=== PATIENT | female | born 1945 | race Caucasian/White ===

== ENCOUNTER → 2016-09-07 05:57 | Outpatient (CLI) | payer MEDICARE, OTHER ==
[2016-07-20 10:32] VITALS: BMI 19.2
[~2016-09-07 05:57] MED LIST: ALDACTONE25 MG PO; BETAPACE 120 M120 MG PO; CARDIZEM LA120 MG PO; CLOBETASOL PROP50 ML TOPICAL; COREG25 MG PO; OMEPRAZOLE40 MG PO; PEPCID20 MG PO; PROTONIX40 MG PO; SYNTHROID25 MCG PO; VALIUM10 MG PO; ZOFRAN ODT4 MG/UDTAB PO
== END | disposition home or self-care (01) ==
LOC: D.US 05:57
DX: E04.1 Nontoxic single thyroid nodule (principal)

== ENCOUNTER → 2016-09-10 09:29 | Outpatient (CLI) | payer MEDICARE, OTHER ==
[2016-07-20 10:32] VITALS: BMI 19.2
== END | disposition home or self-care (01) ==
LOC: D.US 09:29
DX: E04.1 Nontoxic single thyroid nodule (principal)

== ENCOUNTER 2017-01-03 08:41 | Inpatient (IN) | payer MEDICARE, OTHER ==
[~2017-01-03] VITALS: Ht 152.4 cm; Wt 53.5 kg
[2017-01-03 10:37] LABS: APPEARANCE CLEAR (CLEAR); BACTERIA MANY /hpf (NONE SEEN); BILIRUBIN NEGATIVE (NEGATIVE); COLOR YELLOW (YELLOW); EPITHELIAL CELLS 0-5 /hpf (0-5); GLUCOSE NEGATIVE (NEGATIVE); KETONE NEGATIVE (NEGATIVE); LEUKOCYTE ESTERASE 1+ (NEGATIVE); MUCUS <1+ /lpf (NONE SEEN); NITRITE NEGATIVE (NEGATIVE); PROTEIN NEGATIVE (NEGATIVE); UROBILINOGEN NORMAL (NORMAL)
[2017-01-03 11:33] LABS: BASOPHILS 0.6 % (0-2); EOSINOPHILS 2.2 % (0-7); HEMATOCRIT 44.7 % (36.0-48.0); HEMOGLOBIN 15.3 g/dL (12-16); IMMATURE GRANULOCYTES 0.2 % (0-5); LYMPHOCYTES 17.2 % (15-50); MCH 31.7 pg (26.0-34.0); MCHC 34.2 g/dL (31.0-37.0); MCV 92.5 fL (80.0-100.0); MEAN PLATELET VOLUME 9.5 fL (7.4-10.4); MONOCYTES 9.6 % (2-11); NEUTROPHILS 70.2 % (40-80); RBC 4.83 10x6/uL (4.00-5.40); RDW 15.3 % (11.5-14.5); WBC 6.4 10x3/uL (4.8-10.8)
[2017-01-03 11:36] LABS: PLATELET COUNT 201 10x3/uL (130-400)
[2017-01-03 11:37] LABS: APTT 28.3 SECONDS (22.8-39.4); INR 0.97 (0.85-1.17); PROTIME 12.7 SECONDS (11.6-15.0)
[2017-01-03 11:43] LABS: ALBUMIN 4.1 g/dL (3.4-5.0); ALT (SGPT) 37 U/L (10-68); CALC OSMOLALITY 279 mosm/kg (275-300); CALCIUM 10.7 mg/dL (8.5-10.1); CARBON DIOXIDE 24.8 mmol/L (21.0-32.0); CHLORIDE - SERUM 99 mmol/L (98-107); CREATININE - SERUM 0.6 mg/dL (0.6-1.3); GLUCOSE 145 mg/dL (74-106); POTASSIUM - SERUM 4.4 mmol/L (3.5-5.1); SODIUM 138 mmol/L (136-145); UREA NITROGEN 14 mg/dL (7-18); eGFR NON AFRICAN AMERICAN > 90 mL/min (90-120)
[2017-01-03 11:55] LABS: ALKALINE PHOSPHATASE 92 U/L (46-116); BILIRUBIN - TOTAL 0.32 mg/dL (0.2-1.3)
[2017-01-03 13:00] VITALS: BP 159/62
--- NOTE | 2017-01-03 13:50 | NUR ---
RECEIVED TO ROOM FROM ER VIA WC. AT BEDSIDE.
[2017-01-03] MEDS ORDERED: BAYER CHEWABLE81 MG PO (14:19)
[2017-01-03 14:28] VITALS: BP 159/62; BMI 19.0
--- NOTE | 2017-01-03 14:30 | NUR ---
IV TO L AC PATENT. NS INFUSING AT 50 CC/HR VIA PUMP. WEAKNESS NOTED TO ALL EXTREMITIES. REPORTS HAVING LEFT SIDED WEAKNESS FROM PREVIOUS CVA. RIGHT SIDED FACIAL DROOPING NOTED. HAVING DIFFICULTY FINDING CORRECT WORDS. CRISTI MAT APPLIED TO BED. SCD'S IN USE TO BILAT LEGS. PARTY PLAN SALES UNIT ADVISOR SHOWING SR 63 PER TECH.
[2017-01-03 15:44] VITALS: BP 162/69
--- NOTE | 2017-01-03 18:11 | NUR ---
ASSISTED UP TO BEDSIDE COMMODE BY STOCK LAYER.
--- NOTE | 2017-01-03 19:40 | NUR ---
MRI DOWN. NOTIFIED KANCHAN POTTS THAT SERVICE IS HERE AND MRI WILL BE PERFORMED IN AM
[2017-01-03 20:00] VITALS: BP 148/69
[2017-01-04] VITALS: BP 152/71
[2017-01-04 04:00] VITALS: BP 143/58
[2017-01-04 06:01] LABS: BASOPHILS 0.8 % (0-2); EOSINOPHILS 3.5 % (0-7); HEMATOCRIT 41.8 % (36.0-48.0); HEMOGLOBIN 13.9 g/dL (12-16); LYMPHOCYTES 28.1 % (15-50); MCH 31.3 pg (26.0-34.0); MCHC 33.3 g/dL (31.0-37.0); MCV 94.1 fL (80.0-100.0); NEUTROPHILS 51.6 % (40-80); PLATELET COUNT 187 10x3/uL (130-400); RBC 4.44 10x6/uL (4.00-5.40); RDW 15.6 % (11.5-14.5); WBC 4.9 10x3/uL (4.8-10.8)
[2017-01-04 06:31] LABS: CALC OSMOLALITY 275 mosm/kg (275-300); CALCIUM 9.7 mg/dL (8.5-10.1); CARBON DIOXIDE 28.2 mmol/L (21.0-32.0); CHLORIDE - SERUM 101 mmol/L (98-107); CHOL - HDL RATIO 9.4 ratio (2.3-4.1); CHOLESTEROL, TOTAL 311 mg/dL (0-200); CREATININE - SERUM 0.7 mg/dL (0.6-1.3); GLUCOSE 120 mg/dL (74-106); HDL CHOLESTEROL 33 mg/dL (32-96); SODIUM 138 mmol/L (136-145); UREA NITROGEN 11 mg/dL (7-18); eGFR NON AFRICAN AMERICAN 87 mL/min (90-120)
[2017-01-04 06:45] LABS: TRIGLYCERIDE 793 mg/dL (30-200)
--- NOTE | 2017-01-04 07:35 | NUR ---
DR TERRY BY TO SEE PATIENT. OFF FLOOR TO MRI VIA .
--- NOTE | 2017-01-04 08:18 | NUR ---
NO IV ACCESS. MRI BRAIN WITHOUT PERFORMED. WILL OBTAIN MRI BRAIN WITH CONTRAST, IF NEEDED, IF IV ACCESS OBTAINED.
--- NOTE | 2017-01-04 08:50 | NUR ---
RETURNED TO ROOM FROM MRI VIA .
[2017-01-04 09:26] VITALS: BP 110/64
--- NOTE | 2017-01-04 09:30 | NUR ---
ASSESSMENT COMPLETE. NO IV ACCESS AT THIS TIME. CREATIVE ENGAGEMENT DIRECTOR SHOWING SR 69 PER TECH. CRISTI MAT IN USE. SCDS IN USE TO BILAT LEGS. SLIGHT RIGHT FACIAL DROOPING NOTED. SWELLING NOTED TO R EYE. FAMILY AT BEDSIDE.
--- NOTE | 2017-01-04 09:34 | NUR ---
* How many steps to enter\exit or inside your home? 0 0 * PCP Priyanka 0 * Pharmacy [facility] * Preadmission Environment Home with Family 0 * ADLs Independent 0 * Equipment Bedside Commode Rolling Walker Shower Chair 0 * List name and contact numbers for known caregivers / representatives who currently or will assist patient after discharge: Camilo Palomino (spouse) [phone] * Additional services required to return to the preadmission environment? Yes 0 * Can the patient safely return to the preadmission environment? Yes 0 * Has this patient been hospitalized within the prior 30 days at any hospital? No 0 Grand Total: 0 Patient Name: JAMES PALOMINO Admission Status: ER Accout number: [id number] Admission Date: 01-03-2017 : 1945 Admission Diagnosis: Attending: HEMANT Current LOS: 1 Anticipated DC Date: Planned Disposition: Home Primary Insurance: MEDICARE A & B Discharge Planning Comments: Met with spouse (Camilo) [phone] to assess discharge planning needs. Spouse states that they live independently at home without any stairs or steps in the home. Spouse states that she had been using in home PT with [facility], but is currently not at this present time. He states that they have a bed side commode, rolling walker, shower chair. reports that she is having trouble with ambulation. CM will continue to assist and follow as needed with discharge planning needs. PCP: Priyanka Pharmacy: [facility] Spouse : Camilo [phone]) Manager Continuous Improvement: Tanna Ordonez
--- NOTE | 2017-01-04 10:30 | NUR ---
IV SITED TO R HAND WITH 22 GUAGE X 1 ATTEMPT BY FLORES LOOMIS RN. FAMILY AT BEDSIDE. DENIES ANY NEEDS AT PRESENT.
[2017-01-04 12:37] VITALS: BP 161/53
[2017-01-04 12:49] VITALS: Ht 152.4 cm; Wt 53.5 kg
--- NOTE | 2017-01-04 14:00 | NUR ---
VISITING WITH . DENIES ANY NEEDS AT PRESENT.
--- NOTE | 2017-01-04 16:30 | NUR ---
DENIES ANY NEEDS AT PRESENT.
[2017-01-04 16:48] VITALS: BP 141/57
[2017-01-04 20:00] VITALS: BP 166/66
[2017-01-05] VITALS: BP 147/54
--- NOTE | 2017-01-05 02:10 | NUR ---
RESTING WITH EYES CLOSED, NO DISTRESS NOTED, FALL PRECAUTIONS IN PLACE, CL IN REACH
[2017-01-05 04:00] VITALS: BP 150/57
--- NOTE | 2017-01-05 07:35 | NUR ---
ASSESSMENT PER FLOW SHEET.PT WITHOUT DISTRESSS. AT BEDSIDE.CRISTI MAT IN PLACE AND ON.FALL PREVENTION IN PLACE.
[2017-01-05 08:38] VITALS: BP 184/85
[2017-01-05] MEDS ORDERED: ELIQUIS2.5 MG PO (09:56)
[2017-01-05] MEDS ORDERED: MACROBID100 MG PO (09:58)
--- NOTE | 2017-01-05 10:00 | EC ---
PATIENT:JAMES PEACOCK DATE OF SERVICE: 01/04/17 SEX: F MEDICAL RECORD: [id number] DATE OF : [birth year] LOCATION:[facility] AGE OF PATIENT: 71 ADMISSION DATE: 01/04/17 REFERRING PHYSICIAN: INTERPRETING PHYSICIAN: ENEDINA HOGAN MD ECHOCARDIOGRAM REPORT ECHO CHARGES 4 ECHO COMPLETE CLINICAL DIAGNOSIS: AFIB/CVA HX CVA/AFIB ECHOCARDIOGRAPHIC MEASUREMENTS (adult normal given) AC root (d.<3.7cm) 3.0 LV Septum d (<1.2 cm> 1.3 Valve Excursion 1.3 LV Septum (systole) 1.5 Left Atria (s.<4.0cm> 2.6 LVPW d(<1.2cm) 1.3 RV (d.<2.3cm) 2.5 LVPW (sytole) 1.5 LV diastole(<5.6CM) 4.4 MV E-F(>70mm/sec) LV systole 2.9 LVOT Diameter 1.6 MV exc.(>10mm) 1.5 Est.ejection fraction (50-75%) Pericardial Effusion N DOPPLER: LVIT A 63.0 E 110 LA RVSP 18 LVOT 91 AOP1/2T Asc. Ao 155 RVOT 94 RA PA 106 AV Gradient Peak 9.63 AV Mean 5.08 AV Area 1.6 MV Gradient Peak 7.93 MV Mean 2.47 MV Area COMMENTS: Therapeutic Sales Specialist: Jimmy HILLMAN Wire Brusher:1 Dr. Valentin TAPE# PACS DATE OF SERVICE: 01/04/2017 Adequate 2D echo, color flow, spectral Doppler and M-mode. Borderline LVH. LV internal dimension is normal. Wall motion is normal. EF is greater than 55%. Aortic valve is tricuspid. No stenosis by Doppler interrogation. The left atrium is normal. Mitral valve shows no prolapse. Trace to mild MR. Right-sided chamber is grossly normal. Trace TR. TRANSINT:[id number] Voice Confirmation ID: [id number] DOCUMENT ID: [id number] ECHOCARDIOGRAM REPORT [id number] JAMES PEACOCK ENEDINA HOGAN MD at 1000 CC: [id number] DICTATION DATE: 01/04/17 1258 SENIOR IT ARCHITECT: 01/04/17 5543 ADM IN [facility] [address] [id number]
--- NOTE | 2017-01-05 11:05 | NUR ---
IV DCD WITH CATH INTACT.DISCHARGE INSTRUCTIONS WITH PT AND ,STATED UNDERSTANDING.
--- NOTE | 2017-01-05 11:35 | NUR ---
LEFT UNIT VIA WHEELCHAIR FOR TRANSPORT HOME.
== END 2017-01-05 11:35 | disposition home or self-care (01) | DRG 69 ==
LOC: D.ER 08:41 → OBSVTIME 11:35 → D.MS 11:35
PROVIDERS: Emergency Medicine; ADMIT Family Medicine
DX: G45.9 Transient cerebral ischemic attack, unspecified (principal); I69.954 Hemiplegia and hemiparesis following unspecified cerebrovascular disease affecting left non-dominant side; N39.0 Urinary tract infection, site not specified; R47.1 Dysarthria and anarthria; R20.0 Anesthesia of skin; E78.1 Pure hyperglyceridemia; I48.0 Paroxysmal atrial fibrillation; R13.10 Dysphagia, unspecified; I48.2 Chronic atrial fibrillation; K21.9 Gastro-esophageal reflux disease without esophagitis; I10 Essential (primary) hypertension

== ENCOUNTER 2018-04-30 15:40 | Emergency (ER) | payer MEDICARE, OTHER ==
[~2018-04-30] VITALS: Ht 152.4 cm; Wt 51.8 kg
[~2018-04-30 15:40] MED LIST changes: +BAYER CHEWABLE81 MG PO; +ELIQUIS2.5 MG PO; +MACROBID100 MG PO
[2018-04-30 15:58] VITALS: Ht 152.4 cm; Wt 51.8 kg
[2018-04-30 16:11] LABS: BASOPHILS 0.6 % (0-2); EOSINOPHILS 2.7 % (0-7); HEMATOCRIT 32.2 % (36.0-48.0); HEMOGLOBIN 10.4 g/dL (12-16); IMMATURE GRANULOCYTES 0.2 % (0-5); LYMPHOCYTES 12.6 % (15-50); MCH 29.1 pg (26.0-34.0); MCHC 32.3 g/dL (31.0-37.0); MCV 90.2 fL (80.0-100.0); MEAN PLATELET VOLUME 9.1 fL (7.4-10.4); NEUTROPHILS 73.9 % (40-80); RBC 3.57 10x6/uL (4.00-5.40); RDW 15.1 % (11.5-14.5); WBC 8.8 10x3/uL (4.8-10.8)
[2018-04-30 16:16] LABS: APTT 33.7 SECONDS (22.8-39.4); INR 1.24 (0.85-1.17); PROTIME 15.2 SECONDS (11.6-15.0)
[2018-04-30 16:23] LABS: PLATELET COUNT 364 10x3/uL (130-400)
[2018-04-30 16:24] LABS: ALBUMIN 3.8 g/dL (3.4-5.0); ALKALINE PHOSPHATASE 49 U/L (46-116); ALT (SGPT) 22 U/L (10-68); BILIRUBIN - TOTAL 0.28 mg/dL (0.2-1.3); CALC OSMOLALITY 281 mosm/kg (275-300); CALCIUM 10.3 mg/dL (8.5-10.1); CHLORIDE - SERUM 102 mmol/L (98-107); CREATININE - SERUM 0.9 mg/dL (0.6-1.3); GLUCOSE 103 mg/dL (74-106); POTASSIUM - SERUM 3.9 mmol/L (3.5-5.1); PROTEIN - SERUM 8.1 g/dL (6.4-8.2); SODIUM 140 mmol/L (136-145); UREA NITROGEN 20 mg/dL (7-18); eGFR NON AFRICAN AMERICAN 65 mL/min (90-120)
[2018-04-30 16:35] LABS: CKMB 1.3 U/L (0.0-3.6); CREATINE KINASE 61 UL (21-215)
[2018-04-30 16:39] LABS: TROPONIN-I < 0.017 ng/mL (0.000-0.060)
[2018-04-30 18:45] VITALS: BP 140/61
== END 2018-04-30 19:06 | disposition home or self-care (01) ==
LOC: D.ER 15:40
PROVIDERS: Family Medicine
DX: G45.9 Transient cerebral ischemic attack, unspecified (principal); Z86.79 Personal history of other diseases of the circulatory system; Z86.73 Personal history of transient ischemic attack (TIA), and cerebral infarction without residual deficits; R29.810 Facial weakness; I10 Essential (primary) hypertension

== ENCOUNTER → 2019-02-24 12:46 | Outpatient (CLI) | payer MEDICARE, OTHER, MEDICAID ==
[2018-04-30 15:58] VITALS: BMI 22.3
[~2019-02-24 12:46] MED LIST changes: +ALBUTEROL SULF8.5 GM INH; +AUGMENTIN 875-11 TAB PO; +BRILINTA90 MG PO; +FLUTICASONE PRO16 GM NASAL; +ISOSORBIDE MONO30 M1 PO; +MUCINEX DM ER1 EAC1 PO; +MUCINEX600 MG PO; +TESSALON PERLE100 MG PO; +VITAMIN B-122500 MCG PO; +VITAMIN D31000 UNIT PO; +ZPAK PO
== END | disposition home or self-care (01) ==
LOC: D.RAD 12:46
PROVIDERS: ATTEND Specialist
DX: I63.9 Cerebral infarction, unspecified (principal); I69.391 Dysphagia following cerebral infarction

== ENCOUNTER 2019-03-06 12:18 | Emergency (ER) | payer MEDICARE, OTHER, MEDICAID ==
[~2019-03-06] VITALS: Ht 152.4 cm; Wt 50.0 kg
[~2019-03-06 12:18] MED LIST changes: -ALBUTEROL SULF8.5 GM INH; -AUGMENTIN 875-11 TAB PO; -BRILINTA90 MG PO; -FLUTICASONE PRO16 GM NASAL; -ISOSORBIDE MONO30 M1 PO; -MUCINEX DM ER1 EAC1 PO; -MUCINEX600 MG PO; -TESSALON PERLE100 MG PO; -VITAMIN B-122500 MCG PO; -VITAMIN D31000 UNIT PO; -ZPAK PO
[2019-03-06 12:23] VITALS: Ht 152.4 cm; Wt 50.0 kg
[2019-03-06] MEDS ORDERED: ISOSORBIDE MONO30 M1 PO (12:26)
[2019-03-06] MEDS ORDERED: VITAMIN B-122500 MCG PO (12:27)
[2019-03-06] MEDS ORDERED: VITAMIN D31000 UNIT PO (12:28)
[2019-03-06] MEDS ORDERED: ALBUTEROL SULF8.5 GM INH (12:30)
[2019-03-06] MEDS ORDERED: MUCINEX600 MG PO (12:30)
[2019-03-06] MEDS ORDERED: TESSALON PERLE100 MG PO (12:30)
[2019-03-06] MEDS ORDERED: BRILINTA90 MG PO (12:32)
[2019-03-06 13:26] LABS: BASOPHILS 0.8 % (0-2); EOSINOPHILS 4.4 % (0-7); HEMATOCRIT 29.5 % (36.0-48.0); HEMOGLOBIN 9.7 g/dL (12-16); IMMATURE GRANULOCYTES 0.4 % (0-5); LYMPHOCYTES 21.6 % (15-50); MCH 28.2 pg (26.0-34.0); MCHC 32.9 g/dL (31.0-37.0); MCV 85.8 fL (80.0-100.0); MEAN PLATELET VOLUME 8.6 fL (7.4-10.4); MONOCYTES 10.2 % (2-11); NEUTROPHILS 62.6 % (40-80); PLATELET COUNT 306 10x3/uL (130-400); RBC 3.44 10x6/uL (4.00-5.40); RDW 16.1 % (11.5-14.5); WBC 4.8 10x3/uL (4.8-10.8)
[2019-03-06 13:50] LABS: ALBUMIN 2.9 g/dL (3.4-5.0); ALKALINE PHOSPHATASE 138 U/L (46-116); ALT (SGPT) 15 U/L (10-68); BILIRUBIN - TOTAL 0.32 mg/dL (0.2-1.3); CALC OSMOLALITY 268 mosm/kg (275-300); CALCIUM 9.7 mg/dL (8.5-10.1); CARBON DIOXIDE 26.5 mmol/L (21.0-32.0); CHLORIDE - SERUM 97 mmol/L (98-107); CREATININE - SERUM 0.7 mg/dL (0.6-1.3); POTASSIUM - SERUM 3.5 mmol/L (3.5-5.1); PROTEIN - SERUM 6.7 g/dL (6.4-8.2); SODIUM 133 mmol/L (136-145); UREA NITROGEN 5 mg/dL (7-18); eGFR NON AFRICAN AMERICAN 86 mL/min (90-120)
[2019-03-06 13:51] LABS: GLUCOSE 205 mg/dL (74-106)
[2019-03-06] MEDS ORDERED: AUGMENTIN 875-11 TAB PO (13:54)
[2019-03-06] MEDS ORDERED: FLUTICASONE PRO16 GM NASAL (13:54)
[2019-03-06 13:57] LABS: PRO BNP 390 pg/mL (0-450)
[2019-03-06 14:41] VITALS: BP 168/94
== END 2019-03-06 14:42 | disposition home or self-care (01) ==
LOC: D.ER 12:18
PROVIDERS: Family Medicine
DX: J01.90 Acute sinusitis, unspecified (principal); I10 Essential (primary) hypertension

== ENCOUNTER 2019-03-12 13:40 | Emergency (ER) | payer MEDICARE, OTHER, MEDICAID ==
[~2019-03-12] VITALS: Ht 152.4 cm; Wt 56.8 kg
[~2019-03-12 13:40] MED LIST changes: +ALBUTEROL SULF8.5 GM INH; +AUGMENTIN 875-11 TAB PO; +BRILINTA90 MG PO; +FLUTICASONE PRO16 GM NASAL; +ISOSORBIDE MONO30 M1 PO; +MUCINEX600 MG PO; +TESSALON PERLE100 MG PO; +VITAMIN B-122500 MCG PO; +VITAMIN D31000 UNIT PO
[2019-03-12 13:42] VITALS: Ht 152.4 cm; Wt 56.8 kg
[2019-03-12 14:43] LABS: BASOPHILS 0.4 % (0-2); EOSINOPHILS 5.4 % (0-7); HEMATOCRIT 30.8 % (36.0-48.0); HEMOGLOBIN 10.3 g/dL (12-16); IMMATURE GRANULOCYTES 0.3 % (0-5); LYMPHOCYTES 18.5 % (15-50); MCH 28.1 pg (26.0-34.0); MCHC 33.4 g/dL (31.0-37.0); MCV 84.2 fL (80.0-100.0); MEAN PLATELET VOLUME 8.6 fL (7.4-10.4); MONOCYTES 9.5 % (2-11); NEUTROPHILS 65.9 % (40-80); PLATELET COUNT 339 10x3/uL (130-400); RBC 3.66 10x6/uL (4.00-5.40); RDW 16.1 % (11.5-14.5); WBC 6.7 10x3/uL (4.8-10.8)
[2019-03-12 14:58] LABS: APTT 30.5 SECONDS (22.8-39.4); INR 1.23 (0.85-1.17); PROTIME 14.9 SECONDS (11.6-15.0)
[2019-03-12 15:18] LABS: ALBUMIN 3.4 g/dL (3.4-5.0); ALKALINE PHOSPHATASE 128 U/L (46-116); ALT (SGPT) 18 U/L (10-68); BILIRUBIN - TOTAL 0.23 mg/dL (0.2-1.3); CALC OSMOLALITY 278 mosm/kg (275-300); CALCIUM 10.3 mg/dL (8.5-10.1); CARBON DIOXIDE 24.4 mmol/L (21.0-32.0); CHLORIDE - SERUM 100 mmol/L (98-107); CREATININE - SERUM 0.6 mg/dL (0.6-1.3); GLUCOSE 185 mg/dL (74-106); POTASSIUM - SERUM 4.3 mmol/L (3.5-5.1); PROTEIN - SERUM 7.1 g/dL (6.4-8.2); SODIUM 138 mmol/L (136-145); UREA NITROGEN 7 mg/dL (7-18); eGFR NON AFRICAN AMERICAN > 90 mL/min (90-120)
[2019-03-12 15:28] LABS: CKMB 0.9 U/L (0.0-3.6); CREATINE KINASE 38 UL (21-215); PRO BNP 530 pg/mL (0-450)
[2019-03-12 15:41] LABS: TROPONIN-I < 0.017 ng/mL (0.000-0.060)
[2019-03-12] MEDS ORDERED: MUCINEX DM ER1 EAC1 PO (16:39)
[2019-03-12] MEDS ORDERED: ZPAK PO (16:44)
[2019-03-12 17:30] VITALS: BP 204/105
== END 2019-03-12 17:30 | disposition home or self-care (01) ==
LOC: D.ER 13:40
PROVIDERS: Emergency Medicine
DX: R09.89 Other specified symptoms and signs involving the circulatory and respiratory systems (principal); I11.0 Hypertensive heart disease with heart failure; I50.9 Heart failure, unspecified

== ENCOUNTER 2019-05-05 10:00 | Inpatient (IN) | payer MEDICARE, OTHER, MEDICAID ==
[~2019-05-05] VITALS: Ht 152.4 cm; Wt 47.8 kg
[~2019-05-05 10:00] MED LIST changes: +MUCINEX DM ER1 EAC1 PO; +ZPAK PO
[2019-05-05 10:49] LABS: BASOPHILS 0.7 % (0-2); EOSINOPHILS 1.7 % (0-7); HEMOGLOBIN 9.6 g/dL (12-16); IMMATURE GRANULOCYTES 0.2 % (0-5); MCH 29.5 pg (26.0-34.0); MCHC 33.1 g/dL (31.0-37.0); MCV 89.2 fL (80.0-100.0); MEAN PLATELET VOLUME 9.4 fL (7.4-10.4); MONOCYTES 8.7 % (2-11); NEUTROPHILS 76.7 % (40-80); PLATELET COUNT 327 10x3/uL (130-400); RBC 3.25 10x6/uL (4.00-5.40); RDW 16.8 % (11.5-14.5); WBC 4.2 10x3/uL (4.8-10.8)
[2019-05-05 11:11] LABS: ALBUMIN 3.4 g/dL (3.4-5.0); ALKALINE PHOSPHATASE 738 U/L (46-116); ALT (SGPT) 516 U/L (10-68); BILIRUBIN - TOTAL 10.05 mg/dL (0.2-1.3); CALC OSMOLALITY 285 mosm/kg (275-300); CALCIUM 10.1 mg/dL (8.5-10.1); CHLORIDE - SERUM 96 mmol/L (98-107); CREATININE - SERUM 0.6 mg/dL (0.6-1.3); GLUCOSE 395 mg/dL (74-106); POTASSIUM - SERUM 3.6 mmol/L (3.5-5.1); PROTEIN - SERUM 7.4 g/dL (6.4-8.2); SODIUM 135 mmol/L (136-145); UREA NITROGEN 12 mg/dL (7-18); eGFR NON AFRICAN AMERICAN > 90 mL/min (90-120)
[2019-05-05 11:15] LABS: AMYLASE - SERUM 38 U/L (25-115); LIPASE 618 U/L (73-393)
[2019-05-05 11:16] LABS: TROPONIN-I < 0.017 ng/mL (0.000-0.060)
[2019-05-05] MEDS ORDERED: GLIPIZIDE10 MG PO (11:29)
[2019-05-05] MEDS ORDERED: GLUCOPHAGE1000 MG PO (11:29)
[2019-05-05] MEDS ORDERED: COZAAR100 MG PO (11:31)
[2019-05-05] MEDS ORDERED: ACETAMINOPHEN500 M1 PO (11:32)
[2019-05-05 12:11] LABS: APPEARANCE CLEAR (CLEAR); BILIRUBIN NEGATIVE (NEGATIVE); COLOR YELLOW (YELLOW); GLUCOSE 250 mg/dL (NEGATIVE); KETONE NEGATIVE (NEGATIVE); NITRITE NEGATIVE (NEGATIVE); PROTEIN NEGATIVE (NEGATIVE); SPECIFIC GRAVITY 1.005 (1.005-1.020); UROBILINOGEN NORMAL (NORMAL)
--- NOTE | 2019-05-05 14:25 | NUR ---
PATIENT ARRIVED TO UNIT VIA BED AT THIS TIME.
--- NOTE | 2019-05-05 14:26 | MORECARE ---
CASE MANAGEMENT DISCHARGE SUMMARY PATIENT: JAMES PALOMINO UNIT: [id number] ADM DATE: 05/05/19 AGE: 74 : 43 SEX: F ROOM/BED: D.2582 AUTHOR: HAMZAH,DOC PHYSICIAN: REFERRING PHYSICIAN: ISRA PAYNE MD DATE OF SERVICE: 05/05/19 Discharge Plan Patient Name: JAMES PALOMINO Facility: [facility]:[place] : 1945 Planned Disposition: Home Anticipated Discharge Date: 05/07/19 Discharge Date: Expected LOS: 2 Initial Reviewer: [email or web address] Initial Review Date: 05/05/2019 Generated: 05/05/19 3:26 pm DCP- Discharge Planning Updated by [email or web address]: Julieta Atkins on 05/05/19 1:[address] DC PLAN: Return home with . ANTICIPATED DC NEEDS: May want [facility] at discharge. CM met with patient to complete initial dc planning assessment. CM educated patient on the CM role and verbal consent given by patient to complete assessment. CM verified patient's address, phone number, and emergency contact phone numbers. Patient lives at home with her who is her primary cg. He reports he assists her with bathing,dressing, medication mgt, ambulation, and all transportation. At discharge patient will return home with her and they feel this is a safe discharge. Patient's reports the patient is currently getting outpatient PT/ST and he may want to restart [facility] at [facility]. CM had RENE signed by patients for [facility] if order received at [place]. Patients reports he will transport her home at time of discharge. CM will continue to follow and will assist as needed with dc plans/needs. Julieta Atkins RN, [facility] DCPIA - Discharge Planning Initial Assessment Updated by [email or web address]: Julieta Atkins on 05/05/19 2:20 pm * Is the patient Alert and Oriented? Yes * How many steps to enter\exit or inside your home? none * PCP Dr. Rylan Mckenzie * Pharmacy [facility] [place] * Preadmission Environment Home with Family * ADLs Partial Dependent * Partial ADLs (Assistance needed) Ambulation Bathing Dressing Medication Management Transfers * Equipment Bedside Commode Rolling Walker * List name and contact numbers for known caregivers / representatives who currently or will assist patient after discharge: Camilo Palomino - [facility] - [phone] * Verbal permission to speak to the caregivers and representatives has been obtained from the patient. Yes * Community resources currently utilized None * Please name any agencies selected above. Has had [facility] in the Past. * Additional services required to return to the preadmission environment? No * Can the patient safely return to the preadmission environment? Yes * Has this patient been hospitalized within the prior 30 days at any hospital? No Patient Name: JAMES PALOMINO Page 54446 at 1426 All edits/amendments must be made on the electronic document DICTATION DATE: 05/05/191424 CORE CUTTER AND REAMER: ADAL 05/05/191424 RPT#: [id number] DC DATE: STATUS: ADM IN [facility] [address] [place] [address] END OF REPORT
--- NOTE | 2019-05-05 15:13 | MORECARE ---
CASE MANAGEMENT DISCHARGE SUMMARY PATIENT: JAMES PALOMINO UNIT: [id number] ADM DATE: 05/05/19 AGE: 74 : 43 SEX: F ROOM/BED: D.5532 AUTHOR: HAMZAH,DOC PHYSICIAN: REFERRING PHYSICIAN: ISRA PAYNE MD DATE OF SERVICE: 05/05/19 Discharge Plan Patient Name: JAMES PALOMINO Facility: [facility]:[place] : 1945 Planned Disposition: Home Anticipated Discharge Date: 05/07/19 Discharge Date: Expected LOS: 2 Initial Reviewer: [email or web address] Initial Review Date: 05/05/2019 Generated: 05/05/19 4:13 pm DCP- Discharge Planning Updated by [email or web address]: Julieta Atkins on 05/05/19 1:[address] DC PLAN: Return home with . ANTICIPATED DC NEEDS: May want [facility] at discharge. CM met with patient to complete initial dc planning assessment. CM educated patient on the CM role and verbal consent given by patient to complete assessment. CM verified patient's address, phone number, and emergency contact phone numbers. Patient lives at home with her who is her primary cg. He reports he assists her with bathing,dressing, medication mgt, ambulation, and all transportation. At discharge patient will return home with her and they feel this is a safe discharge. Patient's reports the patient is currently getting outpatient PT/ST and he may want to restart [facility] at [place]. CM had RENE signed by patients for [facility] if order received at [place]. Patients reports he will transport her home at time of discharge. CM will continue to follow and will assist as needed with dc plans/needs. Julieta Atkins RN, [facility] DCPIA - Discharge Planning Initial Assessment Updated by [email or web address]: Julieta Atkins on 05/05/19 2:20 pm * Is the patient Alert and Oriented? Yes * How many steps to enter\exit or inside your home? none * PCP Dr. Rylan Mckenzie * Pharmacy [facility] [place] * Preadmission Environment Home with Family * ADLs Partial Dependent * Partial ADLs (Assistance needed) Ambulation Bathing Dressing Medication Management Transfers * Equipment Bedside Commode Rolling Walker * List name and contact numbers for known caregivers / representatives who currently or will assist patient after discharge: Camilo Palomino - [facility] - [phone] * Verbal permission to speak to the caregivers and representatives has been obtained from the patient. Yes * Community resources currently utilized None * Please name any agencies selected above. Has had [facility] in the Past. * Additional services required to return to the preadmission environment? No * Can the patient safely return to the preadmission environment? Yes * Has this patient been hospitalized within the prior 30 days at any hospital? No Last DP export: 05/05/19 1:26 p Patient Name: JAMES PALOMINO Page [phone] at 1513 All edits/amendments must be made on the electronic document DICTATION DATE: 05/05/191512 METAL TUBE CUTTER: ADAL 05/05/191512 RPT#: [id number] DC DATE: STATUS: ADM IN [facility] [address] [place] [address] END OF REPORT
[2019-05-05 15:39] VITALS: BP 110/73; BMI 19.0
[2019-05-05 16:10] VITALS: BP 110/73
--- NOTE | 2019-05-05 16:22 | NUR ---
FSBS 261. NO INSULIN PER SLIDING SCALE PATIENT IS NPO AND HER FSBS DROPPED FROM 395 TO 261 WITH NO INTERVENTION! PATIENT IS ALSO REFUSING THE INSULIN AND WILL WAIT AND HAVE HER FSBS CHECKED AGAIN AT 2100.
--- NOTE | 2019-05-05 17:00 | NUR ---
AT BEDSIDE FOR ROUNDS. NO NEW ORDERS OBTAINED AT THIS TIME. NO DISTRESS.
[2019-05-05 17:27] LABS: CKMB 0.6 U/L (0.0-3.6); CREATINE KINASE 24 UL (21-215)
[2019-05-05 17:28] LABS: TROPONIN-I < 0.017 ng/mL (0.000-0.060)
--- NOTE | 2019-05-05 19:18 | NUR ---
AROUSES WITH VOICE AND DENIES NEEDS PT IS SLOW WITH SPEACH BUT ALERT AND OX4 PT ADMITS SPEACH DIFFICULTIES FOR SOME TIME NOW SKIN IS YELLOW LCTA AND BOWEL SOUNDS X4 BED IS LOW AND LOCKED AND CALL LIGHT IS WITH PT SRX2
[2019-05-05 20:00] VITALS: BP 143/65
[2019-05-06] VITALS: BP 130/53
[2019-05-06 00:28] LABS: CKMB 0.3 U/L (0.0-3.6); CREATINE KINASE 16 UL (21-215); TROPONIN-I < 0.017 ng/mL (0.000-0.060)
[2019-05-06 04:00] VITALS: BP 162/74
[2019-05-06 06:14] LABS: BASOPHILS 0.6 % (0-2); EOSINOPHILS 4.2 % (0-7); HEMATOCRIT 26.6 % (36.0-48.0); HEMOGLOBIN 8.7 g/dL (12-16); IMMATURE GRANULOCYTES 0.3 % (0-5); LYMPHOCYTES 27.8 % (15-50); MCH 29.2 pg (26.0-34.0); MCHC 32.7 g/dL (31.0-37.0); MCV 89.3 fL (80.0-100.0); MEAN PLATELET VOLUME 9.3 fL (7.4-10.4); NEUTROPHILS 57.1 % (40-80); PLATELET COUNT 284 10x3/uL (130-400); RBC 2.98 10x6/uL (4.00-5.40); RDW 17.5 % (11.5-14.5); WBC 3.6 10x3/uL (4.8-10.8)
[2019-05-06 06:32] LABS: APTT 28.1 SECONDS (22.8-39.4); INR 1.26 (0.85-1.17); PROTIME 15.2 SECONDS (11.6-15.0)
[2019-05-06 07:13] LABS: ALBUMIN 2.8 g/dL (3.4-5.0); ALKALINE PHOSPHATASE 635 U/L (46-116); ALT (SGPT) 436 U/L (10-68); BILIRUBIN - TOTAL 9.31 mg/dL (0.2-1.3); CALCIUM 8.6 mg/dL (8.5-10.1); CARBON DIOXIDE 25.6 mmol/L (21.0-32.0); CHLORIDE - SERUM 105 mmol/L (98-107); CKMB 0.4 U/L (0.0-3.6); CREATINE KINASE 14 UL (21-215); MAGNESIUM - SERUM 1.3 mg/dL (1.8-2.4); PHOSPHOROUS 2.7 mg/dL (2.5-4.9); PRO BNP 248 pg/mL (0-450); PROTEIN - SERUM 6.3 g/dL (6.4-8.2); SODIUM 142 mmol/L (136-145); THYROID STIMULATING HORMONE 1.47 uIU/mL (0.36-3.74); UREA NITROGEN 11 mg/dL (7-18)
--- NOTE | 2019-05-06 07:15 | NUR ---
PT RESTING IN BED, SPOUSE AT BEDSIDE. DENIES ANY NEEDS AT THIS TIME, WILL CONT TO FOLLOW POC
[2019-05-06 07:18] LABS: CALC OSMOLALITY 283 mosm/kg (275-300); CREATININE - SERUM 0.4 mg/dL (0.6-1.3); GLUCOSE 133 mg/dL (74-106); TROPONIN-I < 0.017 ng/mL (0.000-0.060); eGFR NON AFRICAN AMERICAN > 90 mL/min (90-120)
[2019-05-06 07:19] LABS: POTASSIUM - SERUM 2.9 mmol/L (3.5-5.1)
--- NOTE | 2019-05-06 07:20 | NUR ---
PT LEFT FLOOR FOR MRI
[2019-05-06 08:11] LABS: HEPATITIS C ANTIBODY <0.1 S/CO RAT (0.0-0.9)
[2019-05-06 08:39] VITALS: BP 155/78
--- NOTE | 2019-05-06 09:50 | NUR ---
PIV TO LEFT WRIST INFILTRATED, PIV REMOVED WITH CATHETER TIP INTACT. ORDER PLACED FOR VASCULAR ACCESS NURSE
--- NOTE | 2019-05-06 10:54 | NUR ---
CONSENTS FOR ERCP SIGNED WITH SECOND NURSE WITNESS. ALL QUESTIONS ANSWERED. DENIES ANY NEEDS AT THIS TIME, WILL CONT TO FOLLOW POC
--- NOTE | 2019-05-06 12:15 | NUR ---
PT RESTING IN BED, FAMILY AT BEDSIDE, DENIES ANY NEEDS AT THIS TIME. WILL CONT TO FOLLOW POC
[2019-05-06 13:16] VITALS: BP 167/84
[2019-05-06 14:10] VITALS: BMI 18.9
--- NOTE | 2019-05-06 14:45 | NUR ---
OR CALLED TO PREOP PT. PT PREOPED ORDERED
--- NOTE | 2019-05-06 15:15 | NUR ---
PT LEFT FLOOR FOR PROCEDURE
[2019-05-06 18:26] VITALS: BP 187/89
--- NOTE | 2019-05-06 18:30 | NUR ---
PT ARRIVED BACK TO FLOOR FROM PROCEDURE. VSS AND WNL. PT ALERT AND ANSWERING QUESTIONS. FAMILY AT BEDSIDE, DENIES ANY NEEDS AT THIS TIME, WILL CONT TO FOLLOW POC
--- NOTE | 2019-05-06 19:25 | NUR ---
REPORT RECEIVED, WILL CONTINUE POC. PATIENT IS A/OX4, UP WITH ASSIST. PATIENT IS STILL A LITTLE DROWSY FROM ANESTHESIA. NO S/S OF DISTRESS OBSERVED, RR EVEN AND UNLABORED ON ROOM AIR. IV TO RT UPPER ARM IS SL, PATENT, DRSG C/D/I. PATIENT DENIES FURTHER NEEDS AT THIS TIME. CL IN REACH, BED LOCKED AND LOWERED. WILL CTM.
[2019-05-06 20:00] VITALS: BP 193/98
[2019-05-07] VITALS: BP 127/70
--- NOTE | 2019-05-07 04:49 | NUR ---
IV INFILTRATED, IV OUT WITH CATH TIP INTACT. WILL ATTEMPT TO RESITE IV.
[2019-05-07 05:49] LABS: BASOPHILS 0.4 % (0-2); EOSINOPHILS 2.4 % (0-7); HEMATOCRIT 27.2 % (36.0-48.0); HEMOGLOBIN 8.9 g/dL (12-16); IMMATURE GRANULOCYTES 0.2 % (0-5); MCH 29.7 pg (26.0-34.0); MCHC 32.7 g/dL (31.0-37.0); MCV 90.7 fL (80.0-100.0); MEAN PLATELET VOLUME 9.7 fL (7.4-10.4); MONOCYTES 9.3 % (2-11); NEUTROPHILS 63.7 % (40-80); PLATELET COUNT 318 10x3/uL (130-400); RDW 18.2 % (11.5-14.5)
[2019-05-07 05:50] LABS: WBC 4.6 10x3/uL (4.8-10.8)
[2019-05-07 06:06] LABS: CALC OSMOLALITY 286 mosm/kg (275-300); CALCIUM 8.6 mg/dL (8.5-10.1); CARBON DIOXIDE 23.2 mmol/L (21.0-32.0); CHLORIDE - SERUM 107 mmol/L (98-107); CREATININE - SERUM 0.6 mg/dL (0.6-1.3); GLUCOSE 138 mg/dL (74-106); MAGNESIUM - SERUM 1.3 mg/dL (1.8-2.4); PHOSPHOROUS 2.7 mg/dL (2.5-4.9); POTASSIUM - SERUM 3.7 mmol/L (3.5-5.1); SODIUM 143 mmol/L (136-145); UREA NITROGEN 12 mg/dL (7-18); eGFR NON AFRICAN AMERICAN > 90 mL/min (90-120)
--- NOTE | 2019-05-07 06:36 | NUR ---
MAG 1.3 THIS AM. MAGOX ADMINISTERED PO. REDRAW ORDERED FOR THIS EVENING.
[2019-05-07 08:00] LABS: ALBUMIN 2.9 g/dL (3.4-5.0); ALKALINE PHOSPHATASE 657 U/L (46-116); ALT (SGPT) 350 U/L (10-68); BILIRUBIN - TOTAL 4.27 mg/dL (0.2-1.3); CALC OSMOLALITY 282 mosm/kg (275-300); CALCIUM 8.6 mg/dL (8.5-10.1); CARBON DIOXIDE 23.8 mmol/L (21.0-32.0); CHLORIDE - SERUM 107 mmol/L (98-107); GLUCOSE 137 mg/dL (74-106); SODIUM 141 mmol/L (136-145); UREA NITROGEN 13 mg/dL (7-18); eGFR NON AFRICAN AMERICAN > 90 mL/min (90-120)
[2019-05-07 08:04] LABS: CREATININE - SERUM 0.6 mg/dL (0.6-1.3)
--- NOTE | 2019-05-07 10:56 | NUR ---
MIDLINE PLACED BY VASCULAR ACCESS NURSE. LEFT AC. IT STARTED BLEEDING. WE HELPD PRESSURE FOR 10 MINUTES. THEN IN ABOUT 8 MINUTES IT KEPT BLEEDING. THEN WE HELD PRESSURE ANOTHER 10 MINUTES. THEN IN 15 MINUTES IT STARTED BLEEDING AGAIN, SO APPLIED CURLEX, GAUZE AND STRETCHY TAPE FOR 30 MINUTES. IT STARTED BLEEDING THOUGH AGAIN. REMOVED THAT DRESSING AND CALLED VASCULAR ACCESS NURSE AGAIN. SHE SAID WRAP IT WITH HAILEE WRAP FOR 30 MIN, AND REASSESS. IT IS WRAPPED WITH HAILEE WRAP NOW. WILL REACESS AT 1130.
--- NOTE | 2019-05-07 11:41 | NUR ---
PATIENT IS RESTING ON HER BACK AT THIS TIME. SHE HAS FAMILY AT BEDSIDE. HER ARM STILL HAS AN HAILEE WRAP IN PLACE SO THAT THERE IS NO BLEEDING. WILL REACCESS AND REDRESS THE ARM .
[2019-05-07 12:10] LABS: CEA 5.3 ng/mL (0.0-4.7)
--- NOTE | 2019-05-07 12:44 | NUR ---
CARA BOONE CAME IN AND PLACED THE SURGISEAL OVER THE SITE AND REDRESSED, THE HAILEE WRAP HAD NOT STOPPED THE BLEEDING AFTER WE HAD IT WRAPPED FOR 1 HOUR. PAOLO USED SURGISEAL, AND PLACED A NEW DRESSING, AND THEN USED SILK TAPE TO CREATE A PRESSURE DRESSING. THE SITE APPEARS TO HAVE STOPPED BLEEDING NOW.
--- NOTE | 2019-05-07 13:16 | NUR ---
CALLED VASCULAR ACCESS NURSE AGAIN. GERONIMO THE SITE IS STILL BLEEDING.
[2019-05-07 13:50] VITALS: BP 148/80
--- NOTE | 2019-05-07 14:23 | NUR ---
PATIENT HAS A SLOW BLEED FROM HER MIDLINE. ICU NURSE CAME OVER AND ACCESSED IT WELL. SHE HAS A SANDBAG OVER THE SITE NOW. IS AWARE. PAOLO MARROQUIN IS AWARE.
--- NOTE | 2019-05-07 14:35 | NUR ---
SANDBAG IS STILL OVER SITE. BLEEDING APPEARS TO BE SLOWING. IT IS STILL BLEEDING. CALLED PAOLO AGAIN, AND SHE SAID SHE IS GOING TO TALK TO DR PAYNE.
[2019-05-07 14:53] LABS: APTT 41.5 SECONDS (22.8-39.4); INR 1.73 (0.85-1.17); PROTIME 19.6 SECONDS (11.6-15.0)
[2019-05-07 17:40] VITALS: BP 142/63
--- NOTE | 2019-05-07 18:28 | NUR ---
PATIENT WILL GO TO CT IN THE AM.THE BLEEDING IN HER MIDLINE APPEARS TO HAVE CLOTTED. SANDBAG IS STILL IN PLACE.
--- NOTE | 2019-05-07 19:09 | NUR ---
AWAKE AND ALERT WITH BY HER SIDE NO CONTINUED BLEEDING NOTED FROM MIDLINE SAND BAG IS IN PLACE PULSE IS PRESENT IN LEFT WRIST BED IS LOW AND LOCKED SR X2 AND PT HAS CALL LIGHT LCTA SKIN WARM AND DRY PT REMAINS JAUNDICE
[2019-05-07 20:00] VITALS: BP 114/52
--- NOTE | 2019-05-07 21:30 | NUR ---
SOME EDEMA NOTED IN LEFT HAND ALSO SOME NEW BLEEDING NOTED PULSE AND COLOR GOOD IN LEFT WRIST LIFTED SANDBAG REMOVED BLOOD STAINED TOWEL REINFORCED DRSG AND REAPLIED SANDBAG
[2019-05-08] VITALS: BP 152/61
--- NOTE | 2019-05-08 02:04 | NUR ---
MIDLINE CONTINUES TO HAVE SMALL AMT OF BLEEDING AT SITE WITH DRSG REMAINING AND SANDBAG IN PLACE PULSE IS INTACT
[2019-05-08 04:30] VITALS: BP 153/65
--- NOTE | 2019-05-08 05:45 | NUR ---
MIDLINE CONTINUES TO BLEED AND I ATTEMPTED TO ADD MORE PRESSURE AT THIS TIME
[2019-05-08 05:53] LABS: CALC OSMOLALITY 285 mosm/kg (275-300); CARBON DIOXIDE 21.3 mmol/L (21.0-32.0); CHLORIDE - SERUM 110 mmol/L (98-107); CREATININE - SERUM 0.5 mg/dL (0.6-1.3); GLUCOSE 134 mg/dL (74-106); PHOSPHOROUS 2.2 mg/dL (2.5-4.9); POTASSIUM - SERUM 3.4 mmol/L (3.5-5.1); SODIUM 143 mmol/L (136-145); UREA NITROGEN 10 mg/dL (7-18); eGFR NON AFRICAN AMERICAN > 90 mL/min (90-120)
[2019-05-08 05:58] LABS: MAGNESIUM - SERUM 1.9 mg/dL (1.8-2.4)
--- NOTE | 2019-05-08 06:08 | NUR ---
BETSEYM 3.4 DID NOT TREAT SINCE PT IS NPO
[2019-05-08 06:17] LABS: BASOPHILS 0.4 % (0-2); EOSINOPHILS 2.2 % (0-7); IMMATURE GRANULOCYTES 0.4 % (0-5); LYMPHOCYTES 21.4 % (15-50); MCH 29.5 pg (26.0-34.0); MCHC 31.9 g/dL (31.0-37.0); MCV 92.5 fL (80.0-100.0); MEAN PLATELET VOLUME 9.2 fL (7.4-10.4); MONOCYTES 7.8 % (2-11); NEUTROPHILS 67.8 % (40-80); PLATELET COUNT 277 10x3/uL (130-400); RDW 18.2 % (11.5-14.5); WBC 4.5 10x3/uL (4.8-10.8)
[2019-05-08 06:26] LABS: RBC 2.27 10x6/uL (4.00-5.40)
[2019-05-08 06:28] LABS: HEMOGLOBIN 6.7 g/dL (12-16)
--- NOTE | 2019-05-08 07:10 | NUR ---
PT RESTING IN BED, SHIFT ASSESSMENT PERFORMED. PT IS STILL BLEEDING OUT OF MIDLINE. APPLIED MORE KERLIX WRAP TO PT ARM. VSS AND WNL. SPOUSE AT BEDSIDE. WILL CONT TO FOLLOW POC
--- NOTE | 2019-05-08 07:25 | NUR ---
CT HERE TO TAKE PT
--- NOTE | 2019-05-08 07:50 | NUR ---
PT RETURNED FROM CT. SAND BAG APPLIED TO MIDLINE DRESSING.
--- NOTE | 2019-05-08 08:30 | NUR ---
BLOOD CHECKED X2 NURSE WITNESS AT BEDSIDE. PRE-TRANSUSION VITALS TAKEN AT 0825. 1U PRBC STARTED AT 0830. SPOUSE AT BEDSIDE. WILL CONT TO FOLLOW POC
--- NOTE | 2019-05-08 08:45 | NUR ---
15 MIN POST TRANSFUSION VITALS OBTAINED AND WNL. WILL CONT TO FOLLOW POC
[2019-05-08 09:39] VITALS: BP 180/90
--- NOTE | 2019-05-08 11:45 | NUR ---
BED BATH AND FULL LINEN CHANGE PROVIDED. 'S DRESSING TO LEFT ARM HAS MINIMAL BLOOD PRESENT AT THIS TIME. SCD'D IN PLACE. NONSKID SOCKS AND HEEL PROTECTORS IN PLACE. FAMILY AT BEDSIDE. WILL CONT TO FOLLOW POC
[2019-05-08 11:49] VITALS: Ht 152.4 cm; Wt 47.8 kg
--- NOTE | 2019-05-08 12:29 | NUR ---
Nutrition Follow-up: Pt did not eat much breakfast this AM. Says that some foods/drinks don't taste right. Has been bleeding from PICC line site. CT of abdomen today. Diet: Clear Liquid Wt: 97# Last BM: 05/04 per chart Labs noted: Glu 134, K+ 3.4, PO4 2.2, Ca 8.0 Meds reviewed When medically feasible, rec ADAT to cardiac carb consistent. Will monitor diet advancement and PO intake/tolerance and wt trends. RD following.
--- NOTE | 2019-05-08 13:01 | MORECARE ---
CASE MANAGEMENT DISCHARGE SUMMARY PATIENT: JAMES PALOMINO UNIT: [id number] ADM DATE: 05/05/19 AGE: 74 : 43 SEX: F ROOM/BED: D.4342 AUTHOR: RAF GOODSON PHYSICIAN: REFERRING PHYSICIAN: ISRA PAYNE MD DATE OF SERVICE: 05/08/19 Discharge Plan Patient Name: JAMES PALOMINO Facility: [facility]:[place] : 1945 Planned Disposition: Half-Way Facility Anticipated Discharge Date: 05/11/19 Discharge Date: Expected LOS: 6 Initial Reviewer: [email or web address] Initial Review Date: 05/05/2019 Generated: 05/08/19 2:01 pm Comments DCP- Discharge Planning Updated by [email or web address]: Noel Yap on 05/08/19 11:[address] Patient Name: JAMES PALOMINO Admission Status: ER Accout number: [id number] Admission Date: 05-05-2019 : 1945 Admission Diagnosis: Attending: ISRA PAYNE Current LOS: 3 Anticipated DC Date: 05-11-2019 Planned Disposition: Half-Way Facility Primary Insurance: MEDICARE A & B PLANNED EXTERNAL PROVIDER: [facility] Discharge Planning Comments: CM MET WITH PT AND SPOUSE IN ROOM TO DISCUSS DISCHARGE NEEDS AND PLANNING. PT REPORTS PERMISSION TO SPEAK WITH HER SPOUSE REGARDING CARE AND DISCHARGE PLANNING. CM DISCUSSED REHAB SERVICES. PT WANTS TO GO TO [facility] AT DISCHARGE, HER SPOUSE WAS THERE RECENTLY AND THEY PREFER THE FACILITY. CHOICE SIGNED. CM WILL SEND REFERRAL TO [facility] SOON POSSIBLE FOR REHAB SERVICES AT HOSPITAL DISCHARGE. Wax Engraver: Noel Yap DCP- Discharge Planning Updated by [email or web address]: Julieta Atkins on 05/05/19 1:[address] DC PLAN: Return home with . ANTICIPATED DC NEEDS: May want [facility] at discharge. CM met with patient to complete initial dc planning assessment. CM educated patient on the CM role and verbal consent given by patient to complete assessment. CM verified patient's address, phone number, and emergency contact phone numbers. Patient lives at home with her who is her primary cg. He reports he assists her with bathing,dressing, medication mgt, ambulation, and all transportation. At discharge patient will return home with her and they feel this is a safe discharge. Patient's reports the patient is currently getting outpatient PT/ST and he may want to restart [facility] at [facility]. CM had RENE signed by patients for [facility] if order received at [facility]. Patients reports he will transport her home at time of discharge. CM will continue to follow and will assist as needed with dc plans/needs. Julieta Atkins RN, [facility] DCPIA - Discharge Planning Initial Assessment Updated by [email or web address]: Julieta Atkins on 05/05/19 2:20 pm * Is the patient Alert and Oriented? Yes * How many steps to enter\exit or inside your home? none * PCP Dr. Rylan Mckenzie * Pharmacy [facility] the [facility] * Preadmission Environment Home with Family * ADLs Partial Dependent * Partial ADLs (Assistance needed) Ambulation Bathing Dressing Medication Management Transfers * Equipment Bedside Commode Rolling Walker * List name and contact numbers for known caregivers / representatives who currently or will assist patient after discharge: Camilo Palomino - - [phone] * Verbal permission to speak to the caregivers and representatives has been obtained from the patient. Yes * Community resources currently utilized None * Please name any agencies selected above. Has had [facility] in the Past. * Additional services required to return to the preadmission environment? No * Can the patient safely return to the preadmission environment? Yes * Has this patient been hospitalized within the prior 30 days at any hospital? No External Providers External Provider: [facility] Next Contact Date: 05/08/2019 Service Request Date: Service Type: Resolution: Reviewer: Comments: Coverage Notice Reviewer: [email or web address] Dayne Yap Notice Issued Date-Time: 05/08/2019 12:15 Notice Type: Patient Choice Letter Notice Delivered To: Family Member Relationship to Patient: Spouse Cashier General Name: CAMILO PALOMINO Delivery Method: HAND - Hand Delivered Sadaf Days: Prior Verbal Notification: Recipient Understood Notice: Yes Recipient Signature: Yes Med Rec Note Co-signed by Attending: Coverage Notice Comment: [facility] DP export: 05/05/19 2:13 p Patient Name: JAMES PALOMINO Page 54046 at 1301 All edits/amendments must be made on the electronic document DICTATION DATE: 05/08/19 130 STEREOPLOTTER OPERATOR: ADAL 05/08/19 130 RPT#: [id number] DC DATE: STATUS: ADM IN [facility] [address] [place] [address] END OF REPORT
[2019-05-08 13:31] VITALS: BP 175/77
--- NOTE | 2019-05-08 13:35 | NUR ---
HERE AND PLACED 2 STICHES TO MIDLINE AT BEDSIDE. PT TOLERATED WELL. NO BLEEDING NOTED AT THIS TIME FROM MIDLINE. WILL CONT TO FOLLOW POC
--- NOTE | 2019-05-08 13:40 | NUR ---
PRE TRANSFUSION VITALS TAKEN AT 1335. 1U PRBC VERIFIED WITH SECOND NURSE WITNESS AND STARTED AT 1340. WILL CONT TO FOLLOW POC
--- NOTE | 2019-05-08 13:55 | NUR ---
15 MINUTE POST TRANSFUSION VITALS TAKEN AND WNL. WILL CONT TO FOLLOW POC
--- NOTE | 2019-05-08 16:53 | MORECARE ---
CASE MANAGEMENT DISCHARGE SUMMARY PATIENT: JAMES PALOMINO UNIT: [id number] ADM DATE: 05/05/19 AGE: 74 : 43 SEX: F ROOM/BED: D.[facility] AUTHOR: RAF GOODSON PHYSICIAN: REFERRING PHYSICIAN: ISRA PAYNE MD DATE OF SERVICE: 05/08/19 Discharge Plan Patient Name: JAMES PALOMINO Facility: [facility]:[place] : 1945 Planned Disposition: Jail Facility Anticipated Discharge Date: 05/11/19 Discharge Date: Expected LOS: 6 Initial Reviewer: [id number] Initial Review Date: 05/05/2019 Generated: 05/08/19 5:53 pm Comments DCP- Discharge Planning Updated by [email or web address]: Noel Yap on 05/08/19 3:[address] Patient Name: JAMES PALOMINO Encounter No: [id number] : 1945 Primary Insurance: MEDICARE A & B Anticipated DC Date: 05-11-2019 Planned Disposition: Jail Facility External Planned Provider: [facility], MEDICARE REHAB BED DCP follow-up note: CM CALLED AND LEFT MESSAGE FOR [facility], , NOTIFYING OF REHAB REFERRAL. CM FAXED REFERRAL FOR REHAB TO [facility] AT [phone]. CM WAITING ADMISSION DETERMINATION FROM [facility]. MILENA Thomas DCP- Discharge Planning Updated by [id number]: Noel Yap on 05/08/19 11:[address] Patient Name: JAMES PALOMINO Admission Status: ER Accout number: [id number] Admission Date: 05-05-2019 : 1945 Admission Diagnosis: Attending: ISRA PAYNE Current LOS: 3 Anticipated DC Date: 05-11-2019 Planned Disposition: Jail Facility Primary Insurance: MEDICARE A & B PLANNED EXTERNAL PROVIDER: [facility] Discharge Planning Comments: CM MET WITH PT AND SPOUSE IN ROOM TO DISCUSS DISCHARGE NEEDS AND PLANNING. PT REPORTS PERMISSION TO SPEAK WITH HER SPOUSE REGARDING CARE AND DISCHARGE PLANNING. CM DISCUSSED REHAB SERVICES. PT WANTS TO GO TO [facility] AT [facility]CHARGE, HER SPOUSE WAS THERE RECENTLY AND THEY PREFER THE FACILITY. CHOICE SIGNED. CM WILL SEND REFERRAL TO [facility] SOON POSSIBLE FOR REHAB SERVICES AT HOSPITAL DISCHARGE. Resource Recovery Specialist: Noel Yap DCP- Discharge Planning Updated by [email or web address]: Julieta Atkins on 05/05/19 1:[address] DC PLAN: Return home with . ANTICIPATED DC NEEDS: May want [facility] at discharge. CM met with patient to complete initial dc planning assessment. CM educated patient on the CM role and verbal consent given by patient to complete assessment. CM verified patient's address, phone number, and emergency contact phone numbers. Patient lives at home with her who is her primary cg. He reports he assists her with bathing,dressing, medication mgt, ambulation, and all transportation. At discharge patient will return home with her and they feel this is a safe discharge. Patient's reports the patient is currently getting outpatient PT/ST and he may want to restart [facility] [place]. CM had RENE signed by patients for [facility] if order received at [place]. Patients reports he will transport her home at time of discharge. CM will continue to follow and will assist as needed with dc plans/needs. Julieta Atkins RN, [facility] DCPIA - Discharge Planning Initial Assessment Updated by [email or web address]: Julieta Atkins on 05/05/19 2:20 pm * Is the patient Alert and Oriented? Yes * How many steps to enter\exit or inside your home? none * PCP Dr. Rylan Mckenzie * Pharmacy [facility] the [facility] * Preadmission Environment Home with Family * ADLs Partial Dependent * Partial ADLs (Assistance needed) Ambulation Bathing Dressing Medication Management Transfers * Equipment Bedside Commode Rolling Walker * List name and contact numbers for known caregivers / representatives who currently or will assist patient after discharge: Camilo Palomino - - [phone] * Verbal permission to speak to the caregivers and representatives has been obtained from the patient. Yes * Community resources currently utilized None * Please name any agencies selected above. Has had [facility] in the Past. * Additional services required to return to the preadmission environment? No * Can the patient safely return to the preadmission environment? Yes * Has this patient been hospitalized within the prior 30 days at any hospital? No Coverage Notice Reviewer: [id number] - Noel Yap Notice Issued Date-Time: 05/08/2019 12:15 Notice Type: Patient Choice Letter Notice Delivered To: Family Member Relationship to Patient: Spouse Metal Plater Name: CAMILO PALOMINO Delivery Method: HAND - Hand Delivered Sadaf Days: Prior Verbal Notification: Recipient Understood Notice: Yes Recipient Signature: Yes Med Rec Note Co-signed by Attending: Coverage Notice [facility] Last DP export: 05/08/19 12:01 Patient Name: JAMES PALOMINO Page 37002 at 1653 All edits/amendments must be made on the electronic document DICTATION DATE: 05/08/191652 CARRIER OPERATOR: ADAL 05/08/191652 RPT#: [id number] DC DATE: STATUS: ADM IN [facility] [address] [place] [address] END OF REPORT
[2019-05-08 17:27] VITALS: BP 182/80
--- NOTE | 2019-05-08 19:26 | NUR ---
RECIEVED BEDSIDE REPORT. UP IN BED WITH EYES OPEN AND SPOUSE AT BEDSIDE. ALERT AND ORIENTED X4. 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 MIDLINE IV TO LEFT UPPER ARM WITH NS @ [address] LARGE BRUISES TO BBILATERAL ARMS AND PETECHI TO ARMS TRUNK AND THIGHS. DENIES ANY NEEDS AT THIS TIME. WILL CONT. POC.
[2019-05-08 20:00] VITALS: BP 196/83
[2019-05-09 04:00] VITALS: BP 187/81
[2019-05-09 04:34] LABS: BASOPHILS 0.8 % (0-2); EOSINOPHILS 4.9 % (0-7); HEMATOCRIT 31.5 % (36.0-48.0); HEMOGLOBIN 10.4 g/dL (12-16); IMMATURE GRANULOCYTES 0.4 % (0-5); LYMPHOCYTES 18.8 % (15-50); MCH 29.7 pg (26.0-34.0); MEAN PLATELET VOLUME 9.3 fL (7.4-10.4); MONOCYTES 14.7 % (2-11); NEUTROPHILS 60.4 % (40-80); PLATELET COUNT 228 10x3/uL (130-400); RDW 17.6 % (11.5-14.5); WBC 5.1 10x3/uL (4.8-10.8)
[2019-05-09 04:51] LABS: ALBUMIN 2.6 g/dL (3.4-5.0); ALKALINE PHOSPHATASE 449 U/L (46-116); BILIRUBIN - TOTAL 2.33 mg/dL (0.2-1.3); CALCIUM 8.3 mg/dL (8.5-10.1); CARBON DIOXIDE 21.6 mmol/L (21.0-32.0); CHLORIDE - SERUM 108 mmol/L (98-107); CREATININE - SERUM 0.5 mg/dL (0.6-1.3); GLUCOSE 144 mg/dL (74-106); PHOSPHOROUS 2.1 mg/dL (2.5-4.9); POTASSIUM - SERUM 3.6 mmol/L (3.5-5.1); PROTEIN - SERUM 5.8 g/dL (6.4-8.2); SODIUM 141 mmol/L (136-145); eGFR NON AFRICAN AMERICAN > 90 mL/min (90-120)
[2019-05-09 05:04] LABS: ALT (SGPT) 183 U/L (10-68); CALC OSMOLALITY 281 mosm/kg (275-300); MAGNESIUM - SERUM 1.3 mg/dL (1.8-2.4); UREA NITROGEN 7 mg/dL (7-18)
--- NOTE | 2019-05-09 07:00 | NUR ---
RECEIVED REPORT. ASSUMED CARE OF PATIENT. CALL LIGHT WITHIN REACH. PATIENT RESTING IN BED WITH EYES OPEN. IV FLUIDS INFUSING ORDERED AT THIS TIME. PATIENT AT BEDSIDE. PATIENT COMPLAINS OF LOTS OF GAS AND THAT SHE TAKES MIRALAX AT HOME AND HAS NOT HAD ANY HERE NOR HAS SHE HAD A BOWEL MOVEMENT IN 3 DAYS. WILL REQUEST MIRALAX FROM PRIMARY TODAY.
--- NOTE | 2019-05-09 07:30 | NUR ---
ASSISTED PATIENT ONTO THE BEDPAN AT THIS TIME. NO DISTRESS.
--- NOTE | 2019-05-09 08:44 | NUR ---
OOB TO CHAIR AT BEDSIDE. STATES SHE FEELS BETTER TODAY AND SMILING.
[2019-05-09 09:22] VITALS: BP 188/85
--- NOTE | 2019-05-09 11:22 | NUR ---
FSBS 250. 4 UNITS HUMULIN ADMINISTERED PER SLIDING SCALE.
[2019-05-09 14:35] VITALS: BP 187/78
--- NOTE | 2019-05-09 16:25 | NUR ---
FSBS 111. NO INSULIN COVERAGE PER SLIDING SCALE.
[2019-05-09 18:19] VITALS: BP 209/88
--- NOTE | 2019-05-09 19:33 | NUR ---
RECIEVED BEDSIDE SHIFT REPORT. ALERT AND ORIENTED . UP WITH ASSIST. SPOUSE AT BEDSIDE. BRUISING TO CARLOTA ARMS. MIDLINE IV TO LEFT UPPER ARM WITH NS INFUSING AT 125/HR. DENIES ANY PAIN OR NEEDS AT THIS TIME. WILL CONT. POC..
[2019-05-09 20:00] VITALS: BP 207/100
[2019-05-10 00:30] VITALS: BP 207/100
--- NOTE | 2019-05-10 00:31 | NUR ---
B/P REPORTED 207. RETAKEN AND . CALLED CARA BERMUDEZ WITH NEW ORDERS FOR HYDRALAZINE 10 MG IV Q6 HRS PRN FOR SYSTOLIC GREATER THAN 170. PT REPORTS ALLERGIC REACTION TO BE NAUSEA. ZOFRAN GIVEN PRIOR TO ADMISTERING HYDRALAIZINE. B/P AT THIS TIME 169/84 HR 84 SR. WILL CONT TO OBSERVE. DENIES ANY NAUSEA.
--- NOTE | 2019-05-10 00:33 | NUR ---
SPOKE WITH SPOUSE ABOUT ALLERGY TO HYDRALAZINE. BROUGHT THIS NURSE A PIECE OF PAPER WITH MEDICATIONS AND REACTIONS. REACTION IS NAUSEA. CALLED CARA BERMUDEZ BACK AND EXPLAINED ALLERGY. CARA BERMUDEZ SAID GO AHEAD AND GIVE IT . BUT, GIVE HER ZOFRAN FIRST FOR THE NAUSES.
--- NOTE | 2019-05-10 01:16 | NUR ---
B/P 157/79 AT THIS TIME. DISCONNECTED B/P CUFF. WILL CONT TO OBSERVE.
[2019-05-10 03:16] LABS: BASOPHILS 0.8 % (0-2); EOSINOPHILS 2.4 % (0-7); HEMATOCRIT 31.6 % (36.0-48.0); HEMOGLOBIN 10.5 g/dL (12-16); IMMATURE GRANULOCYTES 0.6 % (0-5); LYMPHOCYTES 12.4 % (15-50); MCH 29.9 pg (26.0-34.0); MCHC 33.2 g/dL (31.0-37.0); MEAN PLATELET VOLUME 9.1 fL (7.4-10.4); NEUTROPHILS 70.8 % (40-80); PLATELET COUNT 244 10x3/uL (130-400); RBC 3.51 10x6/uL (4.00-5.40); RDW 17.7 % (11.5-14.5); WBC 4.9 10x3/uL (4.8-10.8)
[2019-05-10 03:22] LABS: ALBUMIN 2.8 g/dL (3.4-5.0); ALKALINE PHOSPHATASE 551 U/L (46-116); ALT (SGPT) 166 U/L (10-68); BILIRUBIN - TOTAL 2.63 mg/dL (0.2-1.3); CALCIUM 8.5 mg/dL (8.5-10.1); CARBON DIOXIDE 22.8 mmol/L (21.0-32.0); CHLORIDE - SERUM 106 mmol/L (98-107); CREATININE - SERUM 0.5 mg/dL (0.6-1.3); GLUCOSE 179 mg/dL (74-106); MAGNESIUM - SERUM 1.6 mg/dL (1.8-2.4); PHOSPHOROUS 2.2 mg/dL (2.5-4.9); PROTEIN - SERUM 6.3 g/dL (6.4-8.2); SODIUM 141 mmol/L (136-145); eGFR NON AFRICAN AMERICAN > 90 mL/min (90-120)
[2019-05-10 03:24] LABS: CALC OSMOLALITY 281 mosm/kg (275-300); UREA NITROGEN 5 mg/dL (7-18)
[2019-05-10 04:00] VITALS: BP 147/66
--- NOTE | 2019-05-10 08:55 | NUR ---
PER 'S NOTES ON 05/07, MAY INCREASE DIET TOLERATED. PATIENT DIET INCREASED TO FULL LIQUID THIS AM. PATIENT IS TOLERATING CLEAR LIQUIDS WELL AND ASKING FOR DIFFERENT DIET, THE NEXT STEP UP. PATIENT IS COMPLAINING OF LEFT UPPER ABD PAIN AT SITE OF PANCREAS, LIPASE VERY ELEVATED. WILL MONITOR PATIENT AND SEE HOW WELL SHE TOLERATES FULL LIQUID AT LUNCH OR IF SHE COMPLAINS OF AN INCREASE IN ABD PAIN.
[2019-05-10 09:00] VITALS: BP 190/99
--- NOTE | 2019-05-10 09:40 | NUR ---
PATIENT OOB WITH PT AMBULATING.
--- NOTE | 2019-05-10 11:48 | NUR ---
FSBS 241. 4 UNITS HUMULIN ADMINISTERED PER SLIDING SCALE. NO DISTRESS.
--- NOTE | 2019-05-10 11:49 | NUR ---
PATIENT IS CONSUMING PO INTAKE WELL. NO DISTRESS. IV FLUIDS REMAINS AT 75ML/HR AT THIS TIME.
--- NOTE | 2019-05-10 12:16 | NUR ---
BP NOW 171/86 AFTER ADMINISTERING IV APRESOLINE.
[2019-05-10 13:58] VITALS: BP 185/90
--- NOTE | 2019-05-10 14:08 | NUR ---
AT BEDSIDE FOR ROUNDS. INFORMED HIM THAT WE ARE NOT ABLE TO CONTROL PATIENT BP UNLESS WE USE IV APRESOLINE. NEW ORDER OBTAINED FOR NORVASC. VERIFIED NORVASC ALLERGY IS ONLY A MILD REACTION OF NAUSEA. ALSO WONDERED IF THE ELEVATED LIPASE IS A RESULT OF THE ERCP AND WAS TOLD YES. PATIENT RESTING WITH EYES CLOSED AT THIS TIME. NO DISTRESS.
--- NOTE | 2019-05-10 16:10 | NUR ---
rehab prescreen: this pt will make a good canidiate for IRF. we can admit tomorrow as long as patient and her labs are stable in the morning. pt has medicare insurance so as soon as get discharge and approval from can admit. thank you for this eval. ciara pena lpn clinicial liasion
--- NOTE | 2019-05-10 17:15 | NUR ---
FSBS 204. 4 UNITS HUMULIN ADMINISTERED PER SLIDING SCALE. NO DISTRESS.
[2019-05-10 17:54] VITALS: BP 169/87
--- NOTE | 2019-05-10 19:27 | NUR ---
RECIEVED BEDSIDE SHIFT REPORT. ALERT AND ORIENTED X4. MIDLINE TO LEFT UPPER ARM WITH NS INFUSING AT 50CC/HR. TELEMETRY IN PLACE. DENIES ANY NEED AT THIS TIME. WILL CONT. POC.
[2019-05-10 20:00] VITALS: BP 172/81
[2019-05-11] VITALS: BP 142/79
[2019-05-11 04:00] VITALS: BP 149/69
--- NOTE | 2019-05-11 07:12 | NUR ---
PT RESTING PEACEFULLY WHEN I ENTERED. AT BEDSIDE ALSO RESTING. BREATHS EVEN, REGULAR AND UNLABORED. NO SIGNS/SYMPTOMS OF ACUTE DISTRESS NTOED AT THIS TIME. DID NOT FURTHER DISTURB. CL IN REACH, SRX2,
[2019-05-11 08:01] LABS: BASOPHILS 0.4 % (0-2); EOSINOPHILS 1.9 % (0-7); HEMATOCRIT 33.4 % (36.0-48.0); HEMOGLOBIN 10.9 g/dL (12-16); IMMATURE GRANULOCYTES 0.2 % (0-5); LYMPHOCYTES 18.1 % (15-50); MCH 30.2 pg (26.0-34.0); MCHC 32.6 g/dL (31.0-37.0); MEAN PLATELET VOLUME 9.2 fL (7.4-10.4); MONOCYTES 11.4 % (2-11); PLATELET COUNT 282 10x3/uL (130-400); RBC 3.61 10x6/uL (4.00-5.40); RDW 17.6 % (11.5-14.5); WBC 4.8 10x3/uL (4.8-10.8)
[2019-05-11 08:08] LABS: MCV 92.5 fL (80.0-100.0)
[2019-05-11 08:16] LABS: ALBUMIN 2.8 g/dL (3.4-5.0); ALKALINE PHOSPHATASE 491 U/L (46-116); ALT (SGPT) 133 U/L (10-68); BILIRUBIN - TOTAL 2.54 mg/dL (0.2-1.3); CALC OSMOLALITY 286 mosm/kg (275-300); CALCIUM 9.1 mg/dL (8.5-10.1); CARBON DIOXIDE 25.5 mmol/L (21.0-32.0); CHLORIDE - SERUM 109 mmol/L (98-107); CREATININE - SERUM 0.6 mg/dL (0.6-1.3); GLUCOSE 181 mg/dL (74-106); MAGNESIUM - SERUM 1.5 mg/dL (1.8-2.4); PROTEIN - SERUM 6.5 g/dL (6.4-8.2); SODIUM 143 mmol/L (136-145); UREA NITROGEN 4 mg/dL (7-18); eGFR NON AFRICAN AMERICAN > 90 mL/min (90-120)
[2019-05-11 08:18] LABS: POTASSIUM - SERUM 4.4 mmol/L (3.5-5.1)
[2019-05-11 09:27] VITALS: BP 141/93
--- NOTE | 2019-05-11 11:32 | MORECARE ---
CASE MANAGEMENT DISCHARGE SUMMARY PATIENT: JAMES PALOMINO UNIT: [id number] ADM DATE: 05/05/19 AGE: 74 : 43 SEX: F ROOM/BED: D[facility] AUTHOR: RAF GOODSON PHYSICIAN: REFERRING PHYSICIAN: ISRA PAYNE MD DATE OF SERVICE: 05/11/19 Discharge Plan Patient Name: JAMES PALOMINO Facility: [facility]:[place] : 1945 Planned Disposition: [facility] Facility Anticipated Discharge Date: 05/11/19 Discharge Date: Expected LOS: 6 Initial Reviewer: [email or web address] Initial Review Date: 05/05/2019 Generated: 05/11/19 12:32 pm Comments DCP- Discharge Planning Updated by [id number]: Noel Yap on 05/08/19 3:[address] Patient Name: JAMES PALOMINO Encounter No: [id number] : 1945 Primary Insurance: MEDICARE A & B Anticipated DC Date: 05-11-2019 Planned Disposition: [facility] Facility External Planned Provider: [facility], MEDICARE REHAB BED DCP follow-up note: CM CALLED AND LEFT MESSAGE FOR [facility] [place], , NOTIFYING OF REHAB REFERRAL. CM FAXED REFERRAL FOR REHAB TO [facility] AT [phone]. CM WAITING ADMISSION DETERMINATION FROM [facility]. MILENA Thomas DCP- Discharge Planning Updated by [email or web address]: Noel Yap on 05/08/19 11:[address] Patient Name: JAMES PALOMINO Admission Status: ER Accout number: [id number] Admission Date: 05-05-2019 : 1945 Admission Diagnosis: Attending: ISRA PAYNE Current LOS: 3 Anticipated DC Date: 05-11-2019 Planned Disposition: [facility] Facility Primary Insurance: MEDICARE A & B PLANNED EXTERNAL PROVIDER: [facility] Discharge Planning Comments: CM MET WITH PT AND SPOUSE IN ROOM TO DISCUSS DISCHARGE NEEDS AND PLANNING. PT REPORTS PERMISSION TO SPEAK WITH HER SPOUSE REGARDING CARE AND DISCHARGE PLANNING. CM DISCUSSED REHAB SERVICES. PT WANTS TO GO TO [facility] AND REH[facility] AT DISCHARGE, HER SPOUSE WAS THERE RECENTLY AND THEY PREFER THE FACILITY. CHOICE SIGNED. CM WILL SEND REFERRAL TO [facility] SOON POSSIBLE FOR REHAB SERVICES AT HOSPITAL DISCHARGE. Sales Support Rep: Noel Yap DCP- Discharge Planning Updated by [id number]: Julieta Atkins on 05/05/19 1:[address] DC PLAN: Return home with . ANTICIPATED DC NEEDS: May want [facility] at discharge. CM met with patient to complete initial dc planning assessment. CM educated patient on the CM role and verbal consent given by patient to complete assessment. CM verified patient's address, phone number, and emergency contact phone numbers. Patient lives at home with her who is her primary cg. He reports he assists her with bathing,dressing, medication mgt, ambulation, and all transportation. At discharge patient will return home with her and they feel this is a safe discharge. Patient's reports the patient is currently getting outpatient PT/ST and he may want to restart [facility] [place]. CM had RENE signed by patients for [facility] [place] order [place]. Patients reports he will transport her home at time of discharge. CM will continue to follow and will assist as needed with dc plans/needs. Julieta Atkins RN, [facility] DCPIA - Discharge Planning Initial Assessment Updated by [id number]: Julieta Atkins on 05/05/19 2:20 pm * Is the patient Alert and Oriented? Yes * How many steps to enter\exit or inside your home? none * PCP Dr. Rylan Mckenzie * Pharmacy [facility] the [facility] * Preadmission Environment Home with Family * ADLs Partial Dependent * Partial ADLs (Assistance needed) Ambulation Bathing Dressing Medication Management Transfers * Equipment Bedside Commode Rolling Walker * List name and contact numbers for known caregivers / representatives who currently or will assist patient after discharge: Camilo Palomino - - [phone] * Verbal permission to speak to the caregivers and representatives has been obtained from the patient. Yes * Community resources currently utilized None * Please name any agencies selected above. Has had [facility] in the Past. * Additional services required to return to the preadmission environment? No * Can the patient safely return to the preadmission environment? Yes * Has this patient been hospitalized within the prior 30 days at any hospital? No Coverage Notice Reviewer: [id number] - Noel Yap Notice Issued Date-Time: 05/08/2019 12:15 Notice Type: Patient Choice Letter Notice Delivered To: Family Member Relationship to Patient: Spouse Double End Sewer Name: CAMILO PALOMINO Delivery Method: HAND - Hand Delivered Sadaf Days: Prior Verbal Notification: Recipient Understood Notice: Yes Recipient Signature: Yes Med Rec Note Co-signed by Attending: Coverage Notice Comment: [facility] Reviewer: [id number] Dayne Yap Notice Issued Date-Time: 05/11/2019 11:15 Notice Type: IM Discharge Notice Notice Delivered To: Patient Relationship to Patient: Double End Sewer Name: Delivery Method: HAND - Hand Delivered Sadaf Days: Prior Verbal Notification: Recipient Understood Notice: Yes Recipient Signature: Yes Med Rec Note Co-signed by Attending: Coverage Notice Comment: Last DP export: 05/08/19 3:53 Patient Name: JAMES PALOMINO Page [id number] at 1132 All edits/amendments must be made on the electronic document DICTATION DATE: 05/11/19 1131 RESEARCH GENETICIST: ADAL 05/11/19 1131 RPT#: [id number] DC DATE: STATUS: ADM IN [facility] [address] [place] [address] END OF REPORT
--- NOTE | 2019-05-11 11:42 | MORECARE ---
CASE MANAGEMENT DISCHARGE SUMMARY PATIENT: JAMES PALOMINO UNIT: [id number] ADM DATE: 05/05/19 AGE: 74 : 43 SEX: F ROOM/BED: D.[facility] AUTHOR: HAMZAH,DOC PHYSICIAN: REFERRING PHYSICIAN: ISRA PAYNE MD DATE OF SERVICE: 05/11/19 Discharge Plan Patient Name: JAMES PALOMINO Facility: [facility]:[place] : 1945 Planned Disposition: Fpc Facility Anticipated Discharge Date: 05/11/19 Discharge Date: Expected LOS: 6 Initial Reviewer: [email or web address] Initial Review Date: 05/05/2019 Generated: 05/11/19 12:41 pm Comments DCP- Discharge Planning Updated by [id number]: Noel Yap on 05/11/19 10:[address] Patient Name: JAMES PALOMINO Encounter No: [id number] : 1945 Primary Insurance: MEDICARE A & B Anticipated DC Date: 05-11-2019 Planned Disposition: Fpc Facility External Planned Provider: [facility], MEDICARE REHAB BED DCP follow-up note: CM RECEIVED CALL FROM [facility], , NOTIFYING CM THAT SHE WILL EVALUATE PT TODAY FOR REHAB ADMISSION . CM PRINTED REFERRAL UPDATE FOR SIN WHO STATED SHE WOULD ASH HANDLER FROM CM WHEN SHE EVALUATES PT TODAY. PT NOTIFIED AND IN AGREEMENT WITH REHAB AT [facility], REPORTING SHE DOES NOT WANT TO GO ANYWHERE ELSE FOR REHAB SERVICES. IMPORTANT MESSAGE FROM MEDICARE PROVIDED AND EXPLAINED. CM WAITING ADMISSION DETERMINATION FROM [facility]. Noel Yap, MILENA MANGEMENT DCP- Discharge Planning Updated by [id number]: Noel Yap on 05/08/19 3:[address] Patient Name: JAMES PALOMINO Encounter No: [id number] : 1945 Primary Insurance: MEDICARE A & B Anticipated DC Date: 05-11-2019 Planned Disposition: Fpc Facility External Planned Provider: [facility], MEDICARE REHAB BED DCP follow-up note: CM CALLED AND LEFT MESSAGE FOR [facility], , NOTIFYING OF REHAB REFERRAL. CM [facility] [phone]. CM WAITING ADMISSION DETERMINATION FROM [facility]. MILENA Thomas DCP- Discharge Planning Updated by [id number]: Noel Yap on 05/08/19 11:[address] Patient Name: JAMES PALOMINO Admission Status: ER Accout number: [id number] Admission Date: 05-05-2019 : 1945 Admission Diagnosis: Attending: ISRA PAYNE Current LOS: 3 Anticipated DC Date: 05-11-2019 Planned Disposition: Fpc Facility Primary Insurance: MEDICARE A & B PLANNED EXTERNAL PROVID[facility] Discharge Planning Comments: CM MET WITH PT AND SPOUSE IN ROOM TO DISCUSS DISCHARGE NEEDS AND PLANNING. PT REPORTS PERMISSION TO SPEAK WITH HER SPOUSE REGARDING CARE AND DISCHARGE PLANNING. CM DISCUSSED REHAB SERVICES. PT WANTS TO GO TO [facility] AND REHAB AT DISCHARGE, HER SPOUSE WAS THERE RECENTLY AND THEY PREFER THE FACILITY. CHOICE SIGNED. CM WILL SEND REFERRAL TO [facility] SOON POSSIBLE FOR REHAB SERVICES AT HOSPITAL DISCHARGE. Field Hockey And Lacrosse Coach: Noel Yap DCP- Discharge Planning Updated by [email or web address]: Julieta Atkins on 05/05/19 1:[address] DC PLAN: Return home with . ANTICIPATED DC NEEDS: May want [facility] at discharge. CM met with patient to complete initial dc planning assessment. CM educated patient on the CM role and verbal consent given by patient to complete assessment. CM verified patient's address, phone number, and emergency contact phone numbers. Patient lives at home with her who is her primary cg. He reports he assists her with bathing,dressing, medication mgt, ambulation, and all transportation. At discharge patient will return home with her and they feel this is a safe discharge. Patient's reports the patient is currently getting outpatient PT/ST and he may want to restart [facility] [place]. CM had RENE signed by patients for [facility] if order received at [place]. Patients reports he will transport her home at time of discharge. CM will continue to follow and will assist as needed with dc plans/needs. Julieta Atkins RN, [facility] DCPIA - Discharge Planning Initial Assessment Updated by [id number]: Julieta Atkins on 05/05/19 2:20 pm * Is the patient Alert and Oriented? Yes * How many steps to enter\exit or inside your home? none * PCP Dr. Rylan Mckenzie * Pharmacy [facility] the [facility] * Preadmission Environment Home with Family * ADLs Partial Dependent * Partial ADLs (Assistance needed) Ambulation Bathing Dressing Medication Management Transfers * Equipment Bedside Commode Rolling Walker * List name and contact numbers for known caregivers / representatives who currently or will assist patient after discharge: Camilo Palomino - [facility] - [phone] * Verbal permission to speak to the caregivers and representatives has been obtained from the patient. Yes * Community resources currently utilized None * Please name any agencies selected above. Has had [facility] in the Past. * Additional services required to return to the preadmission environment? No * Can the patient safely return to the preadmission environment? Yes * Has this patient been hospitalized within the prior 30 days at any hospital? No Coverage Notice Reviewer: [id number] Yap Notice Issued Date-Time: 05/08/2019 12:15 Notice Type: Patient Choice Letter Notice Delivered To: Family Member Relationship to Patient: Spouse Field Hand Name: CAMILO PALOMINO Delivery Method: HAND - Hand Delivered Sadaf Days: Prior Verbal Notification: Recipient Understood Notice: Yes Recipient Signature: Yes Med Rec Note Co-signed by Attending: Coverage Notice Comment: [facility] Reviewer: [id number] Yap Notice Issued Date-Time: 05/11/2019 11:15 Notice Type: IM Discharge Notice Notice Delivered To: Patient Relationship to Patient: Field Hand Name: Delivery Method: HAND - Hand Delivered Sadaf Days: Prior Verbal Notification: Recipient Understood Notice: Yes Recipient Signature: Yes Med Rec Note Co-signed by Attending: Coverage Notice Comment: Last DP export: 05/11/19 10:32 Patient Name: JAMES PALOMINO Page [id number] at 1142 All edits/amendments must be made on the electronic document DICTATION DATE: 05/11/19 114 CASH APPLICATION CLERK: ADAL 05/11/19 114 RPT#: [id number] DC DATE: STATUS: ADM IN [facility] [address] [place] [address] END OF REPORT
[2019-05-11 13:39] VITALS: BP 130/86
--- NOTE | 2019-05-11 14:41 | NUR ---
I have reviewed this patient and I concur with the Shift Assessment completed by the Licensed Practical Nurse today this shift.
[2019-05-11 17:49] VITALS: BP 130/92
--- NOTE | 2019-05-11 19:49 | NUR ---
RECIEVED BEDSIDE SHIFT REPORT. ALERT AND ORIENTED X4. UP WITH ASSIST. USES BEDPAN TO URINATE. MIDLINE TO LEFT UPPER ARM WITH 50CC NS INFUSING. DSG CDI. TELEMETRY IN PLACE. REQUESTING MIRALAX AT [facility]. WILL CONTACT INSURANCE PLAN SPECIALIST FOR ORDER. DENIES ANY OTHER NEEDS.
[2019-05-11 20:00] VITALS: BP 188/88
[2019-05-12] VITALS: BP 172/75
[2019-05-12 04:00] VITALS: BP 163/81
[2019-05-12 05:33] LABS: ALBUMIN 2.8 g/dL (3.4-5.0); ALKALINE PHOSPHATASE 429 U/L (46-116); ALT (SGPT) 106 U/L (10-68); BILIRUBIN - TOTAL 2.46 mg/dL (0.2-1.3); CALCIUM 9.4 mg/dL (8.5-10.1); CARBON DIOXIDE 28.6 mmol/L (21.0-32.0); CHLORIDE - SERUM 104 mmol/L (98-107); CREATININE - SERUM 0.6 mg/dL (0.6-1.3); GLUCOSE 165 mg/dL (74-106); PROTEIN - SERUM 6.4 g/dL (6.4-8.2); SODIUM 142 mmol/L (136-145); eGFR NON AFRICAN AMERICAN > 90 mL/min (90-120)
[2019-05-12 05:37] LABS: CALC OSMOLALITY 284 mosm/kg (275-300); POTASSIUM - SERUM 3.2 mmol/L (3.5-5.1); UREA NITROGEN 6 mg/dL (7-18)
[2019-05-12 05:38] LABS: BASOPHILS 0.2 % (0-2); EOSINOPHILS 3.2 % (0-7); HEMATOCRIT 31.2 % (36.0-48.0); HEMOGLOBIN 10.2 g/dL (12-16); IMMATURE GRANULOCYTES 0.2 % (0-5); LYMPHOCYTES 18.4 % (15-50); MCH 30.1 pg (26.0-34.0); MCHC 32.7 g/dL (31.0-37.0); MEAN PLATELET VOLUME 9.7 fL (7.4-10.4); MONOCYTES 14.8 % (2-11); NEUTROPHILS 63.2 % (40-80); PLATELET COUNT 264 10x3/uL (130-400); RBC 3.39 10x6/uL (4.00-5.40)
--- NOTE | 2019-05-12 08:32 | NUR ---
AM MEDS GIVEN AT THIS TIME. PT IN BED, FINISHING BREAKFAST, DENIES ANY NEEDS AT THIS TIME. AT BEDSIDE, NAD NOTED, WILL CONITNUE OT MONITOR.
[2019-05-12 09:45] VITALS: BP 173/84
--- NOTE | 2019-05-12 09:59 | MORECARE ---
CASE MANAGEMENT DISCHARGE SUMMARY PATIENT: JAMES PALOMINO UNIT: [id number] ADM DATE: 05/05/19 AGE: 74 : 43 SEX: F ROOM/BED: D.[facility] AUTHOR: RAF GOODSON PHYSICIAN: REFERRING PHYSICIAN: ISRA PAYNE MD DATE OF SERVICE: 05/12/19 Discharge Plan Patient Name: JAMES PALOMINO Facility: [facility]:[place] : 1945 Planned Disposition: Fdc Facility Anticipated Discharge Date: 05/12/19 Discharge Date: Expected LOS: 7 Initial Reviewer: [id number] Initial Review Date: 05/05/2019 Generated: 05/12/19 10:58 am Comments DCP- Discharge Planning Updated by [id number]: Noel Yap on 05/12/19 8:[address] Patient Name: JAMES PALOMINO Admission Status: ER Accout number: [id number] Admission Date: 05-05-2019 : 1945 Admission Diagnosis: Attending: ISRA PAYNE Current LOS: 7 Anticipated DC Date: 05-12-2019 Planned Disposition: Fdc Facility Primary Insurance: MEDICARE A & B [facility], MEDICARE REHAB BED Discharge Planning Comments: CM RECEIVED CALL FROM [email or web address], , WHO ADVISED THAT [facility] WILL ACCEPT PT TODAY. CM NOTIFIED CARA BERMUDEZ. FOR DISCHARGE, FAX DISCHARGE INFORMATION TO [facility] AT [phone], NURSE REPORT TO BE CALLED TO [facility] AT [phone]. [facility] TO ARRANGE VAN TRANSPORTATION. Seeing Eye Dog Teacher: Noel Yap DCP- Discharge Planning Updated by [id number]: Noel Yap on 05/11/19 10:[address] Patient Name: JAMES PALOMINO Encounter No: [id number] : 1945 Primary Insurance: MEDICARE A & B Anticipated DC Date: 05-11-2019 Planned Disposition: Fdc Facility External Planned Provider: [facility], MEDICARE REHAB BED DCP follow-up note: CM RECEIVED CALL FROM [email or web address] [facility], , NOTIFYING CM THAT SHE WILL EVALUATE PT TODAY FOR REHAB ADMISSION . CM PRINTED REFERRAL UPDATE FOR [facility] WHO STATED SHE WOULD REVIEW SPECIALIST FROM CM WHEN SHE EVALUATES PT TODAY. PT NOTIFIED AND IN AGREEMENT WITH REHAB AT [facility], REPORTING SHE DOES NOT WANT TO GO ANYWHERE ELSE FOR REHAB SERVICES. IMPORTANT MESSAGE FROM MEDICARE PROVIDED AND EXPLAINED. CM WAITING ADMISSION DETERMINATION FROM [facility]. MILENA Thomas MANGEMENT DCP- Discharge Planning Updated by [id number]: Noel Yap on 05/08/19 3:[address] Patient Name: JAMES PALOMINO Encounter No: [id number] : 1945 Primary Insurance: MEDICARE A & B Anticipated DC Date: 05-11-2019 Planned Disposition: Fdc Facility External Planned Provider: [facility], MEDICARE REHAB BED DCP follow-up note: CM CALLED AND LEFT MESSAGE FOR [facility], , NOTIFYING OF REHAB REFERRAL. CM FAXED REFERRAL FOR REHAB TO [facility] AT [phone]. CM WAITING ADMISSION DETERMINATION FROM [facility]. MILENA Thomas MANGEMENT DCP- Discharge Planning Updated by [email or web address]: Noel Yap on 05/08/19 11:[address] Patient Name: JAMES PALOMINO Admission Status: ER Accout number: [id number] Admission Date: 05-05-2019 : 1945 Admission Diagnosis: Attending: ISRA PAYNE Current LOS: 3 Anticipated DC Date: 05-11-2019 Planned Disposition: Fdc Facility Primary Insurance: MEDICARE A & B PLANNED EXTERNAL PROVIDER: [facility] Discharge Planning Comments: CM MET WITH PT AND SPOUSE IN ROOM TO DISCUSS DISCHARGE NEEDS AND PLANNING. PT REPORTS PERMISSION TO SPEAK WITH HER SPOUSE REGARDING CARE AND DISCHARGE PLANNING. CM DISCUSSED REHAB SERVICES. PT [facility], HER SPOUSE WAS THERE RECENTLY AND THEY PREFER THE FACILITY. CHOICE SIGNED. CM WILL SEND REFERRAL TO [facility] SOON POSSIBLE FOR REHAB SERVICES AT HOSPITAL DISCHARGE. Seeing Eye Dog Teacher: Noel Yap DCP- Discharge Planning Updated by [id number]: Julieta Atkins on 05/05/19 1:[address] DC PLAN: Return home with . ANTICIPATED DC NEEDS: May want [facility] at discharge. CM met with patient to complete initial dc planning assessment. CM educated patient on the CM role and verbal consent given by patient to complete assessment. CM verified patient's address, phone number, and emergency contact phone numbers. Patient lives at home with her who is her primary cg. He reports he assists her with bathing,dressing, medication mgt, ambulation, and all transportation. At discharge patient will return home with her and they feel this is a safe discharge. Patient's reports the patient is currently getting outpatient PT/ST and he may want to restart [facility] at [facility]. CM had RENE signed by patients for [facility] if order received at [facility]. Patients reports he will transport her home at time of discharge. CM will continue to follow and will assist as needed with dc plans/needs. Julieta Atkins RN, [facility] DCPIA - Discharge Planning Initial Assessment Updated by [email or web address]: Julieta Atkins on 05/05/19 2:20 pm * Is the patient Alert and Oriented? Yes * How many steps to enter\exit or inside your home? none * PCP Dr. Rylan Mckenzie * Pharmacy [facility] by the [facility] * Preadmission Environment Home with Family * ADLs Partial Dependent * Partial ADLs (Assistance needed) Ambulation Bathing Dressing Medication Management Transfers * Equipment Bedside Commode Rolling Walker * List name and contact numbers for known caregivers / representatives who currently or will assist patient after discharge: Camilo Palomino - - [phone] * Verbal permission to speak to the caregivers and representatives has been obtained from the patient. Yes * Community resources currently utilized None * Please name any agencies selected above. Has had [facility] in the Past. * Additional services required to return to the preadmission environment? No * Can the patient safely return to the preadmission environment? Yes * Has this patient been hospitalized within the prior 30 days at any hospital? No Coverage Notice Reviewer: [id number] Dayne Yap Notice Issued Date-Time: 05/08/2019 12:15 Notice Type: Patient Choice Letter Notice Delivered To: Family Member Relationship to Patient: Spouse Transportation Job Titles Name: CAMILO PALOMINO Delivery Method: HAND - Hand Delivered Sadaf Days: Prior Verbal Notification: Recipient Understood Notice: Yes Recipient Signature: Yes Med Rec Note Co-signed by Attending: [facility]age [facility] Reviewer: [id number] Dayne Yap Notice Issued Date-Time: 05/11/2019 11:15 Notice Type: IM Discharge Notice Notice Delivered To: Patient Relationship to Patient: Transportation Job Titles Name: Delivery Method: HAND - Hand Delivered Sadaf Days: Prior Verbal Notification: Recipient Understood Notice: Yes Recipient Signature: Yes Med Rec Note Co-signed by Attending: Coverage Notice Comment: Last DP export: 05/11/19 10:42 Patient Name: JAMES PALOMINO Page 89383 at 0959 All edits/amendments must be made on the electronic document DICTATION DATE: 05/12/19957 PRIVATE MORTGAGE BANKER SAFE: ADAL 05/12/19957 RPT#: [id number] DC DATE: STATUS: ADM IN [facility] [address] [place] [address] END OF REPORT
[2019-05-12] MEDS ORDERED: NORVASC10 MG PO (10:21)
--- NOTE | 2019-05-12 11:39 | MORECARE ---
CASE MANAGEMENT DISCHARGE SUMMARY PATIENT: JAMES PALOMINO UNIT: [id number] ADM DATE: 05/05/19 AGE: 74 : 43 SEX: F ROOM/BED: D.2112 AUTHOR: RAF GOODSON PHYSICIAN: REFERRING PHYSICIAN: ISRA PAYNE MD DATE OF SERVICE: 05/12/19 Discharge Plan Patient Name: JAMES PALOMINO Facility: [facility]:[place] : 1945 Planned Disposition: Retirement Facility Anticipated Discharge Date: 05/12/19 Discharge Date: Expected LOS: 7 Initial Reviewer: [id number] Initial Review Date: 05/05/2019 Generated: 05/12/19 12:39 pm Comments DCP- Discharge Planning Updated by [email or web address]: Noel Yap on 05/12/19 8:[address] Patient Name: JAMES PALOMINO Admission Status: ER Accout number: [id number] Admission Date: 05-05-2019 : 1945 Admission Diagnosis: Attending: ISRA PAYNE Current LOS: 7 Anticipated DC Date: 05-12-2019 Planned Disposition: Retirement Facility Primary Insurance: MEDICARE A & B [facility], MEDICARE REHAB BED Discharge Planning Comments: CM RECEIVED CALL FROM [employer], , WHO ADVISED THAT [facility] WILL ACCEPT PT TODAY. CM NOTIFIED CARA BERMUDEZ. FOR DISCHARGE, FAX DISCHARGE INFORMATION TO [facility] AT [phone], NURSE REPORT TO BE CALLED TO [facility] AT [phone]. [facility] TO ARRANGE VAN TRANSPORTATION. Civil Estimator: Noel Yap DCP- Discharge Planning Updated by [id number]: Noel Yap on 05/11/19 10:[address] Patient Name: JAMES PALOMINO Encounter No: [id number] : 1945 Primary Insurance: MEDICARE A & B Anticipated DC Date: 05-11-2019 Planned Disposition: Retirement Facility External Planned Provider: [facility], MEDICARE REHAB BED DCP follow-up note: CM RECEIVED CALL FROM [employer] [facility], , NOTIFYING CM THAT SHE WILL EVALUATE PT TODAY FOR REHAB ADMISSION . 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 PT NOTIFIED AND IN AGREEMENT WITH REHAB AT [facility], REPORTING SHE DOES NOT WANT TO GO ANYWHERE ELSE FOR REHAB SERVICES. IMPORTANT MESSAGE FROM MEDICARE PROVIDED AND EXPLAINED. CM WAITING ADMISSION DETERMINATION FROM [facility]. MILENA Thomas MANGEMENT DCP- Discharge Planning Updated by [id number]: Noel Yap on 05/08/19 3:[address] Patient Name: JAMES PALOMINO Encounter No: [id number] : 1945 Primary Insurance: MEDICARE A & B Anticipated DC Date: 05-11-2019 Planned Disposition: Retirement Facility External Planned Provider: [facility], MEDICARE REHAB BED DCP follow-up note: CM CALLED AND LEFT MESSAGE FOR [facility], , NOTIFYING OF REHAB REFERRAL. CM FAXED REFERRAL FOR REHAB TO [facility] AT [phone]. CM WAITING ADMISSION DETERMINATION FROM [facility]. MILENA Thomas MANGEMENT DCP- Discharge Planning Updated by [email or web address]: Noel Yap on 05/08/19 11:[address] Patient Name: JAMES PALOMINO Admission Status: ER Accout number: [id number] Admission Date: 05-05-2019 : 1945 Admission Diagnosis: Attending: ISRA PAYNE Current LOS: 3 Anticipated DC Date: 05-11-2019 Planned Disposition: Retirement Facility Primary Insurance: MEDICARE A & B PLANNED EXTERNAL [facility] Discharge Planning Comments: CM MET WITH PT AND SPOUSE IN ROOM TO DISCUSS DISCHARGE NEEDS AND PLANNING. PT REPORTS PERMISSION TO SPEAK WITH HER SPOUSE REGARDING CARE AND DISCHARGE PLANNING. CM DISCUSSED REHAB SERVICES. [facility], HER SPOUSE WAS THERE RECENTLY AND THEY PREFER THE FACILITY. CHOICE SIGNED. CM WILL SEND [facility] SOON POSSIBLE FOR REHAB SERVICES AT HOSPITAL DISCHARGE. Civil Estimator: Noel Yap DCP- Discharge Planning Updated by [email or web address]: Julieta Atkins on 05/05/19 1:[address] DC PLAN: Return home with . ANTICIPATED DC NEEDS: May want [facility] at discharge. CM met with patient to complete initial dc planning assessment. CM educated patient on the CM role and verbal consent given by patient to complete assessment. CM verified patient's address, phone number, and emergency contact phone numbers. Patient lives at home with her who is her primary cg. He reports he assists her with bathing,dressing, medication mgt, ambulation, and all transportation. At discharge patient will return home with her and they feel this is a safe discharge. Patient's reports the patient is currently getting outpatient PT/ST and he may want to restart [facility] at [place]. CM had RENE signed by patients for [facility] if order received at [place]. Patients reports he will transport her home at time of discharge. CM will continue to follow and will assist as needed with dc plans/needs. Julieta Atkins RN, [facility] DCPIA - Discharge Planning Initial Assessment Updated by [email or web address]: Julieta Atkins on 05/05/19 2:20 pm * Is the patient Alert and Oriented? Yes * How many steps to enter\exit or inside your home? none * PCP Dr. Rylan Mckenzie * Pharmacy [facility] the [facility] * Preadmission Environment Home with Family * ADLs Partial Dependent * Partial ADLs (Assistance needed) Ambulation Bathing Dressing Medication Management Transfers * Equipment Bedside Commode Rolling Walker * List name and contact numbers for known caregivers / representatives who currently or will assist patient after discharge: Camilo Palomino - - [phone] * Verbal permission to speak to the caregivers and representatives has been obtained from the patient. Yes * Community resources currently utilized None * Please name any agencies selected above. Has had [facility] in the Past. * Additional services required to return to the preadmission environment? No * Can the patient safely return to the preadmission environment? Yes * Has this patient been hospitalized within the prior 30 days at any hospital? No Coverage Notice Reviewer: [id number] Dayne Yap Notice Issued Date-Time: 05/08/2019 12:15 Notice Type: Patient Choice Letter Notice Delivered To: Family Member Relationship to Patient: Spouse Director Of Partnerships Name: CAMILO PALOMINO Delivery Method: HAND - Hand Delivered Sadaf Days: Prior Verbal Notification: Recipient Understood Notice: Yes Recipient Signature: Yes Med Rec Note Co-signed by Attending: [facility]age [facility] Reviewer: [id number] Dayne Yap Notice Issued Date-Time: 05/11/2019 11:15 Notice Type: IM Discharge Notice Notice Delivered To: Patient Relationship to Patient: Director Of Partnerships Name: Delivery Method: HAND - Hand Delivered Sadaf Days: Prior Verbal Notification: Recipient Understood Notice: Yes Recipient Signature: Yes Med Rec Note Co-signed by Attending: Coverage Notice Comment: Last DP export: 05/12/19 8:59 Patient Name: JAMES PALOMINO Page 85681 at 1139 All edits/amendments must be made on the electronic document DICTATION DATE: 05/12/19 113 BEATER AND PULPER FEEDER: ADAL 05/12/19 1139 RPT#: [id number] DC DATE: STATUS: ADM IN [facility] [address] [place] [address] END OF REPORT
--- NOTE | 2019-05-12 12:10 | MORECARE ---
CASE MANAGEMENT DISCHARGE SUMMARY PATIENT: JAMES PALOMINO UNIT: [id number] ADM DATE: 05/05/19 AGE: 74 : 43 SEX: F ROOM/BED: D.3392 AUTHOR: RAF GOODSON PHYSICIAN: REFERRING PHYSICIAN: ISRA PAYNE MD DATE OF SERVICE: 05/12/19 Discharge Plan Patient Name: JAMES PALOMINO Facility: [facility]:[place] : 1945 Planned Disposition: Half-Way Facility Anticipated Discharge Date: 05/12/19 Discharge Date: Expected LOS: 7 Initial Reviewer: [id number] Initial Review Date: 05/05/2019 Generated: 05/12/19 1:09 pm Comments DCP- Discharge Planning Updated by [id number]: Noel Yap on 05/12/19 11:[address] Patient Name: JAMES PALOMINO Admission Status: ER Accout number: [id number] Admission Date: 05-05-2019 : 1945 Admission Diagnosis: Attending: ISRA PAYNE Current LOS: 7 Anticipated DC Date: 05-12-2019 Planned Disposition: Half-Way Facility Primary Insurance: MEDICARE A & B [facility], MEDICARE REHAB BED Discharge Planning Comments: CM RECEIVED CALL FROM [employer] [facility], , WHO ADVISED THAT [facility] WILL ACCEPT PT TODAY. CM NOTIFIED CARA BERMUDEZ. FOR DISCHARGE, FAX DISCHARGE INFORMATION TO [facility] AT [phone], NURSE REPORT TO BE CALLED TO [facility] AT [phone]. [facility] TO ARRANGE VAN TRANSPORTATION. Pattern Carrier: Noel Yap Appended by Noel Yap on 05/12/2019 12:06 CDT: CM RECEIVED DISCHARGE ORDER, FAXED DISCHARGE INFORMATION TO [facility] AT [phone]. PT AND SPOUSE NOTIFIED, BOTH IN AGREEMENT WITH DISCHARGE TO [facility]. QUILT SEWER NURSE NOTIFIED. BEDSIDE NURSE NOTIFIED. NURSE REPORT TO BE CALLED TO [facility] AT [phone]. [facility] TO ARRANGE VAN TRANSPORTATION AT 1300 HOURS. Pattern Carrier: Noel Yap DCP- Discharge Planning Updated by [id number]: Noel Yap on 05/11/19 10:[address] Patient Name: JAMES PALOMINO Encounter No: [id number] : 1945 Primary Insurance: MEDICARE A & B Anticipated DC Date: 05-11-2019 Planned Disposition: Half-Way Facility External Planned Provider: [facility], MEDICARE REHAB BED DCP follow-up note: CM RECEIVED CALL FROM [facility] FOR [facility], , NOTIFYING CM THAT SHE WILL EVALUATE PT TODAY FOR REHAB ADMISSION . 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 PT NOTIFIED AND IN AGREEMENT WITH REHAB AT [facility], REPORTING SHE DOES NOT WANT TO GO ANYWHERE ELSE FOR REHAB SERVICES. IMPORTANT MESSAGE FROM MEDICARE PROVIDED AND EXPLAINED. CM WAITING ADMISSION DETERMINATION FROM [facility]. MILENA Thomas DCP- Discharge Planning Updated by [email or web address]: Noel Yap on 05/08/19 3:[address] Patient Name: JAMES PALOMINO Encounter No: [id number] : 1945 Primary Insurance: MEDICARE A & B Anticipated DC Date: 05-11-2019 Planned Disposition: Half-Way Facility External Planned Provider: [facility], MEDICARE REHAB BED DCP follow-up note: CM CALLED AND LEFT MESSAGE FOR [facility], , NOTIFYING OF REHAB REFERRAL. CM FAXED REFERRAL FOR REHAB TO [facility] AT [phone]. CM WAITING ADMISSION DETERMINATION FROM [facility]. MILENA Thomas DCP- Discharge Planning Updated by [id number]: Noel Yap on 05/08/19 11:[address] Patient Name: JAMES PALOMINO Admission Status: ER Accout number: [id number] Admission Date: 05-05-2019 : 1945 Admission Diagnosis: Attending: ISRA PAYNE Current LOS: 3 Anticipated DC Date: 05-11-2019 Planned Disposition: Half-Way Facility Primary Insurance: MEDICARE A & B PLANNED EXTERNAL PROVIDER: [facility] Discharge Planning Comments: CM MET WITH PT AND SPOUSE IN ROOM TO DISCUSS DISCHARGE NEEDS AND PLANNING. PT REPORTS PERMISSION TO SPEAK WITH HER SPOUSE REGARDING CARE AND DISCHARGE PLANNING. CM DISCUSSED REHAB SERVICES. PT WANTS TO GO TO [facility] AT DISCHARGE, HER SPOUSE WAS THERE RECENTLY AND THEY PREFER THE FACILITY. CHOICE SIGNED. CM WILL SEND REFERRAL TO [facility] SOON POSSIBLE FOR REHAB SERVICES AT HOSPITAL DISCHARGE. Pattern Carrier: Noel Yap DCP- Discharge Planning Updated by [id number]: Julieta Atkins on 05/05/19 1:[address] DC PLAN: Return home with . ANTICIPATED DC NEEDS: May want [facility] at discharge. CM met with patient to complete initial dc planning assessment. CM educated patient on the CM role and verbal consent given by patient to complete assessment. CM verified patient's address, phone number, and emergency contact phone numbers. Patient lives at home with her who is her primary cg. He reports he assists her with bathing,dressing, medication mgt, ambulation, and all transportation. At discharge patient will return home with her and they feel this is a safe discharge. Patient's reports the patient is currently getting outpatient PT/ST and he may want to restart [facility] at [place]. CM had RENE signed by patients for [facility] if order received at [place]. Patients reports he will transport her home at time of discharge. CM will continue to follow and will assist as needed with dc plans/needs. Julieta Atkins RN, [facility] DCPIA - Discharge Planning Initial Assessment Updated by [id number]: Julieta Atkins on 05/05/19 2:20 pm * Is the patient Alert and Oriented? Yes * How many steps to enter\exit or inside your home? none * PCP Dr. Rylan Mckenzie * Pharmacy [facility] the [facility] * Preadmission Environment Home with Family * ADLs Partial Dependent * Partial ADLs (Assistance needed) Ambulation Bathing Dressing Medication Management Transfers * Equipment Bedside Commode Rolling Walker * List name and contact numbers for known caregivers / representatives who currently or will assist patient after discharge: Camilo Palomino - - [phone] * Verbal permission to speak to the caregivers and representatives has been obtained from the patient. Yes * Community resources currently utilized None * Please name any agencies selected above. Has had [facility] in the Past. * Additional services required to return to the preadmission environment? No * Can the patient safely return to the preadmission environment? Yes * Has this patient been hospitalized within the prior 30 days at any hospital? No Coverage Notice Reviewer: [id number] Dayne Yap Notice Issued Date-Time: 05/08/2019 12:15 Notice Type: Patient Choice Letter Notice Delivered To: Family Member Relationship to Patient: Spouse Cold Rolling Machine Setter Name: CAMILO PALOMINO Delivery Method: HAND - Hand Delivered Sadaf Days: Prior Verbal Notification: Recipient Understood Notice: Yes Recipient Signature: Yes Med Rec Note Co-signed by Attending: Coverage Notice Comment: [facility] Reviewer: [id number] Dayne Yap Notice Issued Date-Time: 05/11/2019 11:15 Notice Type: IM Discharge Notice Notice Delivered To: Patient Relationship to Patient: Cold Rolling Machine Setter Name: Delivery Method: HAND - Hand Delivered Sadaf Days: Prior Verbal Notification: Recipient Understood Notice: Yes Recipient Signature: Yes Med Rec Note Co-signed by Attending: Coverage Notice Comment: Last DP export: 05/12/19 10:39 Patient Name: JAMES PALOMINO Page 72745 at 1210 All edits/amendments must be made on the electronic document DICTATION DATE: 05/12/191208 AUGER MILL OPERATOR: ADAL 05/12/191208 RPT#: [id number] DC DATE: STATUS: ADM IN [facility] [address] [place] [address] END OF REPORT
--- NOTE | 2019-05-12 12:24 | NUR ---
GAVE 4UNITS OF INSULIN FOR BLOOD SUGAR OF 248. ALSO PROVIDED VERBAL AND WRITTEN DISCHARGE TEACHING TO PT AND , BOTH VERBALIZED UNDERSTANDING REGARDING TEACHING. D/C LT UPPER ARM MIDLINE, WIHT CATHETER TIP INTACT. WRAPPED ARM WITH KERLEX, NO BLEEDING NOTED AT THIS TIME. HEART MONITOR REMOVED AND TAKEN TO ALARM FIELD TECHNICIAN, [facility] WILL BE HERE TO PICK PT UP AT 1300.
[2019-05-12 12:37] VITALS: BP 134/81
--- NOTE | 2019-05-12 13:44 | NUR ---
Nutrition Follow-up: Diet advanced. Pt reports that she became nauseous after eating a small amt of breakfast this AM. Attempting to eat lunch at time of visit. ST recommends solids with thin liquids. Noted plans to d/c to [facility] today. Diet: Regular PO intake: 0-50% Wt: 105# Last BM: 05/10 Labs noted: Glu 165, K+ 3.2 Meds noted: Miralax, KDur, Humulin, NS@125 Provided written information re: cholesterol and triglyceride nutrition therapy per pt's request. RD following.
--- NOTE | 2019-05-12 14:12 | NUR ---
REPORT CALLED TO FAHAD AT [facility], WAS NOTIFIED BY FAH[facility] THAT PT IS NOT BEING PICKED UP UNTIL AROUND 1530.
--- NOTE | 2019-05-12 15:18 | MORECARE ---
CASE MANAGEMENT DISCHARGE SUMMARY PATIENT: JAMES PALOMINO UNIT: [id number] ADM DATE: 05/05/19 AGE: 74 : 41 SEX: F ROOM/BED: D.3842 AUTHOR: RAF GOODSON PHYSICIAN: REFERRING PHYSICIAN: ISRA PAYNE MD DATE OF SERVICE: 05/12/19 Discharge Plan Patient Name: JAMES PALOMINO Facility: [facility]:[place] : 1945 Planned Disposition: Halfway Facility Anticipated Discharge Date: 05/12/19 Discharge Date: Expected LOS: 7 Initial Reviewer: [id number] Initial Review Date: 05/05/2019 Generated: 05/12/19 4:18 pm Comments DCP- Discharge Planning Updated by [id number]: Noel Yap on 05/12/19 11:[address] Patient Name: JAMES PALOMINO Admission Status: ER Accout number: [id number] Admission Date: 05-05-2019 : 1945 Admission Diagnosis: Attending: ISRA PAYNE Current LOS: 7 Anticipated DC Date: 05-12-2019 Planned Disposition: Halfway Facility Primary Insurance: MEDICARE A & B [facility], MEDICARE REHAB BED Discharge Planning Comments: CM RECEIVED CALL FROM [facility], , WHO ADVISED THAT [facility] WILL ACCEPT PT TODAY. CM NOTIFIED CARA BERMUDEZ. FOR DISCHARGE, FAX DISCHARGE INFORMATION TO [facility] AT [phone], NURSE REPORT TO BE CALLED TO [facility] AT [phone]. [facility] TO ARRANGE VAN TRANSPORTATION. Chemistry Specialist: Noel Yap Appended by Noel Yap on 05/12/2019 12:06 CDT: CM RECEIVED DISCHARGE ORDER, FAXED DISCHARGE INFORMATION TO [facility] AT [phone]. PT AND SPOUSE NOTIFIED, BOTH IN AGREEMENT WITH DISCHARGE TO [facility]. AMMONIA TECHNICIAN NURSE NOTIFIED. BEDSIDE NURSE NOTIFIED. NURSE REPORT TO BE CALLED TO [facility] AT [phone]. [facility] TO ARRANGE VAN TRANSPORTATION AT 1300 HOURS. Chemistry Specialist: Noel Yap DCP- Discharge Planning Updated by [id number]: Noel Yap on 05/11/19 10:[address] Patient Name: JAMES PALOMINO Encounter No: [id number] : 1945 Primary Insurance: MEDICARE A & B Anticipated DC Date: 05-11-2019 Planned Disposition: Halfway Facility External Planned Provider: [facility], MEDICARE REHAB BED DCP follow-up note: CM RECEIVED CALL FROM [facility] FOR [facility], , NOTIFYING CM THAT SHE WILL EVALUATE PT TODAY FOR REHAB ADMISSION . CM PRINTED REFERRAL UPDATE FOR SIN WHO STATED SHE WOULD DIGESTER HAND FROM CM WHEN SHE EVALUATES PT TODAY. PT NOTIFIED AND IN AGREEMENT WITH REHAB AT [facility], REPORTING SHE DOES NOT WANT TO GO ANYWHERE ELSE FOR REHAB SERVICES. IMPORTANT MESSAGE FROM MEDICARE PROVIDED AND EXPLAINED. CM WAITING ADMISSION DETERMINATION FROM [facility]. MILENA Thomas DCP- Discharge Planning Updated by [id number]: Noel Yap on 05/08/19 3:[address] Patient Name: JAMES PALOMINO Encounter No: [id number] : 1945 Primary Insurance: MEDICARE A & B Anticipated DC Date: 05-11-2019 Planned Disposition: Halfway Facility External Planned Provider: [facility], MEDICARE REHAB BED DCP follow-up note: CM CALLED AND LEFT MESSAGE FOR FAHAD OF [facility], , NOTIFYING OF REHAB REFERRAL. CM FAXED REFERRAL FOR REHAB TO [facility] AT [phone]. CM WAITING ADMISSION DETERMINATION FROM [facility]. MILENA Thomas DCP- Discharge Planning Updated by [id number]: Noel Yap on 05/08/19 11:[address] Patient Name: JAMES PALOMINO Admission Status: ER Accout number: [id number] Admission Date: 05-05-2019 : 1945 Admission Diagnosis: Attending: ISRA PAYNE Current LOS: 3 Anticipated DC Date: 05-11-2019 Planned Disposition: Halfway Facility Primary Insurance: MEDICARE A & B PLANNED EXTERNAL PROVIDER: [facility] Discharge Planning Comments: CM MET WITH PT AND SPOUSE IN ROOM TO DISCUSS DISCHARGE NEEDS AND PLANNING. PT REPORTS PERMISSION TO SPEAK WITH HER SPOUSE REGARDING CARE AND DISCHARGE PLANNING. CM DISCUSSED REHAB SERVICES. PT WANTS TO GO TO [facility] AND REHAB AT DISCHARGE, HER SPOUSE WAS THERE RECENTLY AND THEY PREFER THE FACILITY. CHOICE SIGNED. CM WILL SEND REFERRAL TO [facility] AND REHAB SOON POSSIBLE FOR REHAB SERVICES AT HOSPITAL DISCHARGE. Chemistry Specialist: Noel Yap DCP- Discharge Planning Updated by [id number]: Julieta Atkins on 05/05/19 1:[address] DC PLAN: Return home with . ANTICIPATED DC NEEDS: May want [facility] at discharge. CM met with patient to complete initial dc planning assessment. CM educated patient on the CM role and verbal consent given by patient to complete assessment. CM verified patient's address, phone number, and emergency contact phone numbers. Patient lives at home with her who is her primary cg. He reports he assists her with bathing,dressing, medication mgt, ambulation, and all transportation. At discharge patient will return home with her and they feel this is a safe discharge. Patient's reports the patient is currently getting outpatient PT/ST and he [place] [facility] [place]. CM had RENE signed by patients for [facility] if order [place]. Patients reports he will transport her home at time of discharge. CM will continue to follow and will assist as needed with dc plans/needs. Julieta Atkins RN, [facility] DCPIA - Discharge Planning Initial Assessment Updated by [id number]: Julieta Atkins on 05/05/19 2:20 pm * Is the patient Alert and Oriented? Yes * How many steps to enter\exit or inside your home? none * PCP Dr. Rylan Mckenzie * Pharmacy [facility] the [facility] * Preadmission Environment Home with Family * ADLs Partial Dependent * Partial ADLs (Assistance needed) Ambulation Bathing Dressing Medication Management Transfers * Equipment Bedside Commode Rolling Walker * List name and contact numbers for known caregivers / representatives who currently or will assist patient after discharge: Camilo Palomino - - [phone] * Verbal permission to speak to the caregivers and representatives has been obtained from the patient. Yes * Community resources currently utilized None * Please name any agencies selected above. Has had [facility] in the Past. * Additional services required to return to the preadmission environment? No * Can the patient safely return to the preadmission environment? Yes * Has this patient been hospitalized within the prior 30 days at any hospital? No Coverage Notice Reviewer: [id number] Dayne Yap Notice Issued Date-Time: 05/08/2019 12:15 Notice Type: Patient Choice Letter Notice Delivered To: Family Member Relationship to Patient: Spouse Dressmaker Garment Fitter Name: CAMILO PALOMINO Delivery Method: HAND - Hand Delivered Sadaf Days: Prior Verbal Notification: Recipient Understood Notice: Yes Recipient Signature: Yes Med Rec Note Co-signed by Attending: Coverage Notice Comment: [facility] Reviewer: [id number] Dayne Yap Notice Issued Date-Time: 05/11/2019 11:15 Notice Type: IM Discharge Notice Notice Delivered To: Patient Relationship to Patient: Dressmaker Garment Fitter Name: Delivery Method: HAND - Hand Delivered Sadaf Days: Prior Verbal Notification: Recipient Understood Notice: Yes Recipient Signature: Yes Med Rec Note Co-signed by Attending: Coverage Notice Comment: Last DP export: 05/12/19 11:10 Patient Name: JAMES PALOMINO Page [id number] at 1518 All edits/amendments must be made on the electronic document DICTATION DATE: 05/12/191517 INSURANCE RATER: ADAL 05/12/191517 RPT#: [id number] DC DATE: STATUS: ADM IN [facility] [address] [place] [address] END OF REPORT
--- NOTE | 2019-05-12 16:20 | NUR ---
PT LEFT UNIT WITH ALL BELONGINGS, VIA WHEELCHAIR, ACCOMPANIED BY [facility] CREATIVE WRITING TEACHER AND , NAD NOTED.
== END 2019-05-12 16:21 | DRG 444 ==
LOC: D.ER 10:00 → D.M2 13:27
PROVIDERS: Emergency Medicine; Family Medicine; Internal Medicine Gastroenterology; ADMIT Internal Medicine Nephrology; ATTEND Internal Medicine Nephrology
PROC: 0F798DZ Dilation of Common Bile Duct with Intraluminal Device, Via Natural or Artificial Opening Endoscopic (ICD-10-PCS; 2019-05-06)
PROC: 0FD98ZX Extraction of Common Bile Duct, Via Natural or Artificial Opening Endoscopic, Diagnostic (ICD-10-PCS; 2019-05-06)
PROC: 0DJ08ZZ Inspection of Upper Intestinal Tract, Via Natural or Artificial Opening Endoscopic (ICD-10-PCS; principal; 2019-05-06 15:00)
DX: K83.1 Obstruction of bile duct (principal); E43 Unspecified severe protein-calorie malnutrition; R17 Unspecified jaundice; E87.1 Hypo-osmolality and hyponatremia; I50.32 Chronic diastolic (congestive) heart failure; Z68.1 Body mass index [BMI] 19.9 or less, adult; I11.0 Hypertensive heart disease with heart failure; R74.0 Nonspecific elevation of levels of transaminase and lactic acid dehydrogenase [LDH]; E11.9 Type 2 diabetes mellitus without complications; D64.9 Anemia, unspecified; E83.42 Hypomagnesemia; E87.6 Hypokalemia; I25.10 Atherosclerotic heart disease of native coronary artery without angina pectoris; I48.91 Unspecified atrial fibrillation; K20.9 Esophagitis, unspecified; K29.80 Duodenitis without bleeding; Z86.73 Personal history of transient ischemic attack (TIA), and cerebral infarction without residual deficits